=== PATIENT | male | born 1985 | race Two or more races ===

== ENCOUNTER 2016-07-28 12:05 | Emergency (ER) | payer SELFPAY ==
--- NOTE | 2016-07-28 12:30 | ER Document Report ---
ED Medical Screen (RME) - General Stated Complaint: BACK PAIN Time seen by provider: 12:28 Mode of Arrival: Ambulatory Information source: Patient Notes: 31-year-old male presents to ED for right flank pain with a burning sensation when he urinates. Complaint of urgency and frequency. States he thinks he has some bloody discharge. States the splint on for week. Denies any history of kidney stones. I have greeted and performed a rapid initial assessment of this patient. A comprehensive ED assessment and evaluation of the patient, analysis of test results and completion of medical decision making process will be conducted by an additional ED providers. TRAVEL OUTSIDE OF THE [place] IN LAST 30 DAYS: No - Related Data Allergies/Adverse Reactions: No Known Allergies Allergy (Verified 07/28/16 12:27) Past Medical History Pulmonary Medical History: Reports: Hx Asthma Endocrine Medical History: Denies: Hx Diabetes Mellitus Type 2 GI Medical History: Denies: Hx Gastroesophageal Reflux Disease Musculoskeltal Medical History: Reports Hx Musculoskeletal Trauma Traumatic Medical History: Reports: Hx Fractures - right 5th finger Past Surgical History: Reports: Hx Oral Surgery - Immunizations Immunizations up to date: Yes Hx Diphtheria, Pertussis, Tetanus Vaccination: Yes - 2014 Physical Exam - Vital signs Vitals: Temp Pulse Resp BP Pulse Ox 98.2 F 85 20 143/99 H 100 07/28/16 12:24 07/28/16 12:24 07/28/16 12:24 07/28/16 12:24 07/28/16 12:24 Course - Vital Signs Vital signs: Temp Pulse Resp BP Pulse Ox 98.2 F 85 20 143/99 H 100 07/28/16 12:24 07/28/16 12:24 07/28/16 12:24 07/28/16 12:24 07/28/16 12:24
[2016-07-28] MEDS ORDERED: IBUPROFEN 800 MG TABLET PO ONE (12:31)
[2016-07-28] MEDS ORDERED: ONDANSETRON 4 MG TAB.RAPDIS PO ONE (12:31)
[2016-07-28 12:58] LABS: ABSOLUTE EOSINOPHILS # (AUTO) 0.2 10^3/uL (0.0-0.6); ABSOLUTE LYMPHOCYTES (AUTO) 1.9 10^3/uL (0.5-4.7); ABSOLUTE MONOCYTES (AUTO) 0.6 10^3/uL (0.1-1.4); ABSOLUTE NEUT (AUTO) 4.7 10^3/uL (1.7-8.2); BASOPHILS % (AUTO) 0.6 % (0-2); EOSINOPHILS % (AUTO) 3.1 % (0-6); HEMATOCRIT 52.9 % (37.9-51.0); HEMOGLOBIN 17.9 g/dL (13.5-17.0); HGB HCT DIFFERENCE 0.8; LYMPHOCYTES % (AUTO) 25.2 % (13-45); MEAN CORPUSCULAR HGB CONC 33.9 g/dL (32.0-36.0); MEAN CORPUSCULAR VOLUME 89 fl (80-97); MONOCYTES % (AUTO) 8.3 % (3-13); RED BLOOD COUNT 5.96 10^6/uL (4.35-5.55); SEGMENTED NEUTROPHILS % (AUTO) 62.8 % (42-78); WHITE BLOOD COUNT 7.5 10^3/uL (4.0-10.5)
[2016-07-28 13:20] LABS: APPEARANCE,URINE SLIGHTLY-CLOUDY; BILIRUBIN,URINE NEGATIVE (NEGATIVE); GLUCOSE, URINE NEGATIVE (NEGATIVE); KETONES,URINE NEGATIVE (NEGATIVE); LEUKOCYTE ESTERASE,URINE NEGATIVE (NEGATIVE); NITRITE,URINE NEGATIVE (NEGATIVE); PROTEIN,URINE NEGATIVE (NEGATIVE); URINE SPECIFIC GRAVITY 1.024; UROBILINOGEN,URINE NEGATIVE mg/dL (<2.0)
[2016-07-28 13:25] LABS: ALANINE AMINOTRANSFERASE 47 U/L (21-72); ALBUMIN 5.3 g/dL (3.5-5.0); ALKALINE PHOSPHATASE 117 U/L (38-126); ANION GAP 10 (5-19); ASPARTATE AMINO TRANSFERASE 35 U/L (17-59); BLOOD UREA NITROGEN 14 mg/dL (7-20); CALCIUM 10.3 mg/dL (8.4-10.2); CARBON DIOXIDE 29 mmol/L (22-30); CHLORIDE 104 mmol/L (98-107); CREATININE RESULT 0.91 mg/dL (0.52-1.25); GLUCOSE 103 mg/dL (75-110); POTASSIUM 5.1 mmol/L (3.6-5.0); TOTAL PROTEIN 8.7 g/dL (6.3-8.2)
--- NOTE | 2016-07-28 13:35 | ER Document Report ---
[id number] Mode of Arrival: Ambulatory Information source: Patient Notes: 31-year-old male presents with complaints of flank pain with burning on urination. Patient notes he is socially active has no concerns of sexual transmitted disease. Patient has noted blood in his urine. Denies any previous similar episodes TRAVEL OUTSIDE OF THE [place] IN LAST 30 DAYS: No - HPI Onset: Yesterday Onset/Duration: Sudden Quality of pain: Achy Severity: Mild Pain Level: 1 Associated symptoms: None Exacerbated by: Other - Urination Relieved by: Denies Similar symptoms previously: No Recently seen / treated by doctor: No - Related Data Allergies/Adverse Reactions: No Known Allergies Allergy (Verified 07/28/16 12:27) Past Medical History - General Information source: Patient - Social History Smoking Status: Current Some Day Smoker Cigarette use (# per day): Yes Chew tobacco use (# tins/day): Yes Smoking Education Provided: No Family History: Hypertension Pulmonary Medical History: Reports: Hx Asthma Endocrine Medical History: Denies: Hx Diabetes Mellitus Type 2 Renal/ Medical History: Denies: Hx Peritoneal Dialysis GI Medical History: Denies: Hx Gastroesophageal Reflux Disease Musculoskeltal Medical History: Reports Hx Musculoskeletal Trauma Traumatic Medical History: Reports: Hx Fractures - right 5th finger Past Surgical History: Reports: Hx Oral Surgery - Immunizations Immunizations up to date: Yes Hx Diphtheria, Pertussis, Tetanus Vaccination: Yes - 2014 Review of Systems - Review of Systems Notes: REVIEW OF SYSTEMS: CONSTITUTIONAL : Denies fever, chills, or sweats. Denies recent illness. EENT: Denies eye, ear, throat, or mouth pain or symptoms. Denies nasal or sinus congestion or discharge. Denies throat, tongue, or mouth swelling or difficulty swallowing. CARDIOVASCULAR: Denies chest pain. Denies palpitations or racing or irregular heart beat. Denies ankle edema. RESPIRATORY: Denies cough, cold, or chest congestion. Denies shortness of breath, difficulty breathing, or wheezing. GASTROINTESTINAL: Admits to flank pain GENITOURINARY: Admits to burning on urination MUSCULOSKELETAL: Denies back or neck pain or stiffness. Denies joint pain or swelling. SKIN: Denies rash, lesions or sores. HEMATOLOGIC : Denies easy bruising or bleeding. LYMPHATIC: Denies swollen, enlarged glands. NEUROLOGICAL: Denies confusion or altered mental status. Denies passing out or loss of consciousness. Denies dizziness or lightheadedness. Denies headache. Denies weakness or paralysis or loss of use of either side. Denies problems with gait or speech. Denies sensory loss, numbness, or tingling. Denies seizures. PSYCHIATRIC: Denies anxiety or stress. Denies depression, suicidal ideation, or homicidal ideation. ALL OTHER SYSTEMS REVIEWED AND NEGATIVE. Dictation was performed using [employer] voice recognition software PHYSICAL EXAMINATION: GENERAL: Well-appearing, well-nourished and in no acute distress. HEAD: Atraumatic, normocephalic. EYES: Pupils equal round and reactive to light, extraocular movements intact, sclera anicteric, conjunctiva are normal. ENT: Nares patent, oropharynx clear without exudates. Moist mucous membranes. NECK: Normal range of motion, supple without lymphadenopathy LUNGS: Breath sounds clear to auscultation bilaterally and equal. No wheezes rales or rhonchi. HEART: Regular rate and rhythm without murmurs ABDOMEN: Soft, nontender, nondistended abdomen. No guarding, no rebound. No masses appreciated. Bilateral CVA tenderness Musculoskeletal: Normal range of motion, no pitting or edema. No cyanosis. NEUROLOGICAL: Cranial nerves grossly intact. Normal speech, normal gait. Normal sensory, motor exams PSYCH: Normal mood, normal affect. SKIN: Warm, Dry, normal turgor, no rashes or lesions noted. Physical Exam - Vital signs Vitals: Temp Pulse Resp BP Pulse Ox 98.2 F 85 20 143/99 H 100 07/28/16 12:24 07/28/16 12:24 07/28/16 12:24 07/28/16 12:24 07/28/16 12:24 Course - Re-evaluation Re-evalutation: 07/28/16 15:27 Patient's imaging lab work note no significant abnormality, patient does have hematuria which is either covering up his UTI or use a kidney stone that is not being seen I will treat the patient's pain and culture his urine. Gonorrhea Chlamydia was pending and is noted to be negative After performing a Medical Screening Examination, I estimate there is LOW risk for ACUTE CORONARY SYNDROME, RESPIRATORY FAILURE, SEPSIS OR MENINGITIS, thus I consider the discharge disposition reasonable. The patient and I have discussed the diagnosis and risks, and we agree with discharging home with close follow- up. We also discussed returning to the Emergency Department immediately if new or worsening symptoms occur. We have discussed the symptoms which are most concerning (e.g., changing or worsening pain, trouble swallowing or breathing, neck stiffness, fever) that necessitate immediate return. 07/28/16 15:28 - Vital Signs Vital signs: Temp Pulse Resp BP Pulse Ox 98.2 F 81 18 152/83 H 97 07/28/16 14:25 07/28/16 14:25 07/28/16 14:25 07/28/16 14:25 07/28/16 14:25 - Laboratory Result Diagrams: 07/28/16 12:35 07/28/16 12:35 Laboratory results interpreted by me: 07/28/16 07/28/16 07/28/16 12:35 12:35 12:35 RBC 5.96 H Hgb 17.9 H Hct 52.9 H Potassium 5.1 H Calcium 10.3 H Total Protein 8.7 H Albumin 5.3 H Urine Blood LARGE H Urine Ascorbic Acid 20 H - Diagnostic Test Radiology reviewed: Image reviewed, Reports reviewed Discharge - Discharge Clinical Impression: Hematuria, Flank pain Condition: Stable Disposition: HOME, SELF-CARE Instructions: Hematuria ([facility]) Additional Instructions: Follow up with your physician tomorrow for further care or return to the ED IMMEDIATELY if symptoms worsen or new concerns occur Prescriptions: Hydrocodone/Acetaminophen [[place] 5-325 mg Tablet] 1 tab PO Q6 #14 tablet Phenazopyridine HCl [Pyridium 200 mg Tablet] 200 mg PO TID #15 tablet
[2016-07-28 14:33] VITALS: BP 152/83
[2016-07-28 14:45] LABS: CHLAM PCR NOT DETECTED (NOT DETECT)
== END 2016-07-28 14:25 | disposition home or self-care (01) ==
LOC: ER 12:05
DX: R31.9 Hematuria, unspecified (principal); R10.9 Unspecified abdominal pain; R30.0 Dysuria; F17.210 Nicotine dependence, cigarettes, uncomplicated
CPT/HCPCS: 99284; 36415; 87086; 85025; 80053; 81001; 87491; 87591; 76380; S0119

== ENCOUNTER 2016-09-11 12:50 | Emergency (ER) | payer OTHER ==
[2016-09-11] MEDS ORDERED: NAPROXEN 250 MG TABLET PO ONE (13:26)
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
[2016-09-11 15:13] VITALS: BP 126/76
== END 2016-09-11 15:13 | disposition home or self-care (01) ==
LOC: ER 12:50
DX: T14.8 Other injury of unspecified body region (principal); M54.2 Cervicalgia; M54.9 Dorsalgia, unspecified; V48.5XXA Car driver injured in noncollision transport accident in traffic accident, initial encounter; F17.210 Nicotine dependence, cigarettes, uncomplicated; J45.909 Unspecified asthma, uncomplicated
CPT/HCPCS: 72125; 72128; 72131; 99284

== ENCOUNTER 2016-12-09 17:20 | Emergency (ER) | payer OTHER ==
[2016-12-09] MEDS ORDERED: DIPH/PERTUSS(ACELL)/TETANUS VAC/PF 0.5 ML SYR (>=10YO) IM ONE (18:06)
[2016-12-09] MEDS ORDERED: BACITRACIN ZINC OINTMENT 15 GM TP ONE (18:06)
[2016-12-09] MEDS ORDERED: LIDOCAINE 1% INJ (10 MG/ML) 10 ML MDV INJ ONE (18:07)
--- NOTE | 2016-12-09 18:32 | RADIOLOGY REPORT (SQ) ---
EXAM DESCRIPTION: FINGER LEFT COMPLETED DATE/TIME: 12/09/2016 6:20 pm REASON FOR STUDY: left 2nd finger injury COMPARISON: None. NUMBER OF VIEWS: Three views. TECHNIQUE: AP, lateral, and oblique images acquired of the left second finger. LIMITATIONS: None. FINDINGS: MINERALIZATION: Normal. BONES: No acute fracture or dislocation. No worrisome bone lesions. SOFT TISSUES: No soft tissue swelling. No foreign body. OTHER: No other significant finding. IMPRESSION: NO RADIOGRAPHIC EVIDENCE OF ACUTE INJURY. COMMENT: SITE OF TRAUMA/COMPLAINT MARKED/STAMP COMPLETED: Yes TECHNICAL DOCUMENTATION: JOB ID: [id number] [employer]- All Rights Reserved
[2016-12-09] MEDS ORDERED: OXYCODONE-ACETAMINOPHEN 5-325 MG TABLET PO ONE (19:03)
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
[2016-12-09 19:32] VITALS: BP 113/66
== END 2016-12-09 19:28 | disposition home or self-care (01) ==
LOC: ER 17:20
PROC: 2W3KX1Z Immobilization of Left Finger using Splint (ICD-10-PCS; principal; 2016-12-09)
DX: M79.645 Pain in left finger(s) (principal); W22.8XXA Striking against or struck by other objects, initial encounter; F17.200 Nicotine dependence, unspecified, uncomplicated
CPT/HCPCS: 99283; 90471; 73140; 90715; 29130; J3490

== ENCOUNTER 2016-12-15 21:57 | Emergency (ER) | payer OTHER ==
--- NOTE | 2016-12-15 22:57 | ER Document Report ---
ED General - General Chief Complaint: Toothache Stated Complaint: TOOTH PAIN Time Seen by Provider: 12/15/16 22:53 Notes: Patient is a 31-year-old male who presents with right upper molar pain. Describes it as a severe, constant, stabbing pain. Nothing improves the pain. States eating or drinking worsens the pain. He has not seen a dentist regarding today's concerns. Denies any difficulty breathing, swallowing, fever or constitutional symptoms. No facial swelling. TRAVEL OUTSIDE OF THE [place] IN LAST 30 DAYS: No - Related Data Allergies/Adverse Reactions: No Known Allergies Allergy (Verified 07/28/16 12:27) Past Medical History - General Information source: Patient - Social History Smoking Status: Never Smoker Frequency of alcohol use: None Drug Abuse: None Lives with: Spouse/Significant other Family History: Reviewed & Not Pertinent, Hypertension Pulmonary Medical History: Reports: Hx Asthma Endocrine Medical History: Denies: Hx Diabetes Mellitus Type 2 Renal/ Medical History: Denies: Hx Peritoneal Dialysis GI Medical History: Denies: Hx Gastroesophageal Reflux Disease Musculoskeltal Medical History: Reports Hx Musculoskeletal Trauma Traumatic Medical History: Reports: Hx Fractures - right 5th finger Past Surgical History: Reports: Hx Oral Surgery - Immunizations Immunizations up to date: Yes Hx Diphtheria, Pertussis, Tetanus Vaccination: Yes - 2014 Review of Systems - Review of Systems Notes: Constitutional: Negative for fever. HENT: Negative for sore throat. Positive for dental pain Eyes: Negative for visual changes. Cardiovascular: Negative for chest pain. Respiratory: Negative for shortness of breath. Gastrointestinal: Negative for abdominal pain, vomiting or diarrhea. Genitourinary: Negative for dysuria. Musculoskeletal: Negative for back pain. Skin: Negative for rash. Neurological: Negative for headaches, weakness or numbness. 10 point ROS negative except as marked above and in HPI. Physical Exam - Vital signs Vitals: Temp Pulse Resp BP Pulse Ox 98 F 74 16 147/94 H 99 12/15/16 22:07 12/15/16 22:07 12/15/16 22:07 12/15/16 22:07 12/15/16 22:07 Interpretation: Hypertensive Notes: PHYSICAL EXAMINATION: GENERAL: Well-appearing, well-nourished and in no acute distress. HEAD: Atraumatic, normocephalic. EYES: sclera anicteric, conjunctiva are normal. ENT: Moist mucous membranes. Poor dentition throughout. No buccal mucosal swelling or airway edema. NECK: Normal range of motion LUNGS: Normal work of breathing HEART: 2+ radial pulses bilaterally EXTREMITIES: no pitting or edema. No cyanosis. NEUROLOGICAL: No focal neurological deficits. Moves all extremities spontaneously and on command. PSYCH: Normal mood, normal affect. SKIN: Warm, Dry, normal turgor, no rashes or lesions noted. Course - Re-evaluation Re-evalutation: 12/15/16 22:56 Presentation is most consistent with poor dentition with associated dental pain. This is patient's seventh visit to this emergency department in the past 1 year for dental pain issues. Airway is patent. Vitals within normal limits. Patient is able swallow without any difficulty. There is no significant facial swelling. Patient will be started on antibiotics. I've instructed to follow-up with dentistry as earliest ability for definitive management. Return precautions and follow-up recommendations have been discussed at length. - Vital Signs Vital signs: Temp Pulse Resp BP Pulse Ox 98.5 F 64 13 134/85 H 98 12/15/16 23:35 12/15/16 23:35 12/15/16 23:35 12/15/16 23:35 12/15/16 23:35 Discharge - Discharge Clinical Impression: Pain, dental Condition: Good Disposition: HOME, SELF-CARE Additional Instructions: You have been seen for dental pain. It is very important that you follow-up with a dentist for definitive care. Please return if you develop fever greater than 101, swelling in your face, vomiting, difficulty breathing or swallowing, or any other symptoms that are concerning to you. For pain you should take ibuprofen 600 mg every 6 hours as needed. Prescriptions: Penicillin V Potassium [Penicillin Vk 500 mg Tablet] 500 mg PO BID #20 tablet
[2016-12-15 23:37] VITALS: BP 134/85
== END 2016-12-15 23:35 | disposition home or self-care (01) ==
LOC: ER 21:57
DX: K08.89 Other specified disorders of teeth and supporting structures (principal); J45.909 Unspecified asthma, uncomplicated
CPT/HCPCS: 99282

== ENCOUNTER 2016-12-27 14:02 | Emergency (ER) | payer OTHER ==
[2016-12-27] MEDS ORDERED: ONDANSETRON HCL INJ/PF 4 MG/2 ML SDV IV ONE (14:21)
[2016-12-27] MEDS ORDERED: NORMAL SALINE 1000 ML 1,000 ML IV ONE (14:21)
[2016-12-27] MEDS ORDERED: KETOROLAC TROMETHAMINE INJ/PF 30 MG/1 ML SDV IV ONE (14:22)
--- NOTE | 2016-12-27 14:26 | ER Document Report ---
ED Medical Screen (RME) - General Chief Complaint: Flank Pain Stated Complaint: LEFT SIDE PAIN,VOMITING Time Seen by Provider: 12/27/16 14:18 Mode of Arrival: Ambulatory Information source: Patient TRAVEL OUTSIDE OF THE [place] IN LAST 30 DAYS: No - HPI Onset: Other - 3 DAYS Onset/Duration: Gradual Quality of pain: Cramping, Dull Severity: Moderate Associated Symptoms: Nausea, Vomiting. denies: Chills, Fever Exacerbated by: Denies Relieved by: Denies Similar symptoms previously: No Recently seen / treated by doctor: No - Related Data Allergies/Adverse Reactions: No Known Allergies Allergy (Verified 12/27/16 14:09) Past Medical History - General Information source: Patient Pulmonary Medical History: Reports: Hx Asthma Endocrine Medical History: Denies: Hx Diabetes Mellitus Type 2 Renal/ Medical History: Denies: Hx Peritoneal Dialysis GI Medical History: Denies: Hx Gastroesophageal Reflux Disease Musculoskeltal Medical History: Reports Hx Musculoskeletal Trauma Traumatic Medical History: Reports: Hx Fractures - right 5th finger Past Surgical History: Reports: Hx Oral Surgery - Immunizations Immunizations up to date: Yes Hx Diphtheria, Pertussis, Tetanus Vaccination: Yes - 2014 Review of Systems - Review of Systems Constitutional: No symptoms reported EENT: No symptoms reported Cardiovascular: No symptoms reported Respiratory: No symptoms reported Gastrointestinal: See HPI Genitourinary: See HPI, Flank pain Physical Exam - Vital signs Vitals: Temp Pulse Resp BP Pulse Ox 98.1 F 105 H 16 140/83 H 97 12/27/16 14:08 12/27/16 14:08 12/27/16 14:08 12/27/16 14:08 12/27/16 14:08 Interpretation: Hypertensive, Tachycardic. No: Tachypneic, Febrile - General General appearance: Alert, Anxious In distress: Mild - Respiratory Respiratory status: No respiratory distress Course - Vital Signs Vital signs: Temp Pulse Resp BP Pulse Ox 98.1 F 105 H 16 140/83 H 97 12/27/16 14:08 12/27/16 14:08 12/27/16 14:08 12/27/16 14:08 12/27/16 14:08
--- NOTE | 2016-12-27 14:58 | ER Document Report ---
ED GI/ - General Mode of Arrival: Ambulatory Information source: Patient TRAVEL OUTSIDE OF THE [place] IN LAST 30 DAYS: No - HPI Patient complains to provider of: Abdominal pain Onset: Other - "last week or two" Quality of pain: Achy Location: LLQ Associated symptoms: Blood in emesis, Diarrhea, Vomiting Recently seen / treated by doctor: Yes - started on abx within the last week for tooth infection <TARIQ RIBEIRO - Last Filed: 12/27/16 15:33> <RADHA GREEN - Last Filed: 12/27/16 20:51> - General Chief Complaint: Flank Pain Stated Complaint: LEFT SIDE PAIN,VOMITING Time Seen by Provider: 12/27/16 14:18 Notes: Patient is a 31 year old male that presents to the emergency department today with complaints of abdominal pain with associated vomiting for the last "week or two". Patient states his pain begins in his LLQ and it radiates around his left side towards his back. Patient states today while at work, he went to the bathroom and vomited and there was "bright red streaks" of blood in the vomit. Patient states he has noticed that greasy foods make him vomit, but he is able to keep down non-greasy foods despite his lack of appetite. Patient goes on to mention that he has "lost 20 pounds over the last few months". Patient adds that he is currently taking penicillin for a tooth infection, but states that his symptoms started before his course of antibiotics began. Patient complains of associated diarrhea and burning with urination. Patient denies penile discharge and states he has had no new sexual partners and he is not concerned about STIs. (TARIQ RIBEIRO) - Related Data Allergies/Adverse Reactions: No Known Allergies Allergy (Verified 12/27/16 14:09) Past Medical History - General Information source: Patient, [facility] Records - Social History Smoking Status: Current Some Day Smoker Cigarette use (# per day): Yes Chew tobacco use (# tins/day): No Frequency of alcohol use: Occasional Drug Abuse: None Occupation: [employer] Family History: Reviewed & Not Pertinent, Hypertension Pulmonary Medical History: Reports: Hx Asthma Musculoskeltal Medical History: Reports Hx Musculoskeletal Trauma Traumatic Medical History: Reports: Hx Fractures - right 5th finger Past Surgical History: Reports: Hx Oral Surgery - Immunizations Immunizations up to date: Yes Hx Diphtheria, Pertussis, Tetanus Vaccination: Yes - 2014 <TARIQ RIBEIRO - Last Filed: 12/27/16 15:33> Review of Systems - Review of Systems Constitutional: See HPI, Fever - "felt warm" EENT: No symptoms reported Cardiovascular: No symptoms reported Respiratory: No symptoms reported Gastrointestinal: See HPI, Abdominal pain - left sided, radiating around to left side/back, Diarrhea, Nausea, Vomiting, Blood in vomit Genitourinary: See HPI, Burning Male Genitourinary: denies: Penile discharge Musculoskeletal: No symptoms reported Skin: No symptoms reported Hematologic/Lymphatic: No symptoms reported Neurological/Psychological: No symptoms reported -: Yes All other systems reviewed and negative <TARIQ RIBEIRO - Last Filed: 12/27/16 15:33> Physical Exam <TARIQ RIBEIRO - Last Filed: 12/27/16 15:33> <RADHA GREEN - Last Filed: 12/27/16 20:51> - Vital signs Vitals: Temp Pulse Resp BP Pulse Ox 98.1 F 105 H 16 140/83 H 97 12/27/16 14:08 12/27/16 14:08 12/27/16 14:08 12/27/16 14:08 12/27/16 14:08 - Notes Notes: PHYSICAL EXAM GENERAL: Sleeping soundly upon entry into room, wakes up to voice and begins complaining of discomfort after waking up. Once awake, patient is alert, interacts well. No acute distress. HEAD: Normocephalic, atraumatic. EYES: Pupils equal, round, and reactive to light. Extraocular movements intact. ENT: Oral mucosa moist, tongue midline. NECK: Full range of motion. Supple. Trachea midline. LUNGS: Clear to auscultation bilaterally, no wheezes, rales, or rhonchi. No respiratory distress. HEART: Regular rate and rhythm, no tachycardia. No murmurs, gallops, or rubs. ABDOMEN: Soft, LLQ tenderness with palpation, no guarding, rebound, rigidity, or palpable masses. Non-distended. Bowel sounds present in all 4 quadrants. EXTREMITIES: Moves all 4 extremities spontaneously. No edema, radial and dorsalis pedis pulses 2/4 bilaterally. No cyanosis. NEUROLOGICAL: Alert and oriented x3. Normal speech. PSYCH: Normal affect, normal mood. SKIN: Warm, dry, normal turgor. No rashes or lesions noted. (TARIQ RIBEIRO) Course <TARIQ RIBEIRO - Last Filed: 12/27/16 15:33> - Laboratory Result Diagrams: 12/27/16 14:45 12/27/16 14:45 <RADHA GREEN - Last Filed: 12/27/16 20:51> - Re-evaluation Re-evalutation: 12/27/16 16:56 CBC unremarkable, CMP unremarkable, lipase normal, urinalysis unremarkable with no signs of infection, blood or dehydration. No evidence of kidney stone. Patient able to tolerate liquids here without difficulty. Discussed with patient that I do not have an exact cause for his vomiting or diarrhea however I will discharge him home with Zofran, Phenergan and recommendations to use Imodium. No evidence of surgical abdomen at this time. (RADHA GREEN) - Vital Signs Vital signs: Temp Pulse Resp BP Pulse Ox 97.9 F 74 16 126/81 H 100 12/27/16 17:16 12/27/16 17:16 12/27/16 17:16 12/27/16 17:16 12/27/16 17:16 - Laboratory Laboratory results interpreted by me: 12/27/16 16:15 Urine Ascorbic Acid 20 H Discharge <TARIQ RIBEIRO - Last Filed: 12/27/16 15:33> <RADHA GREEN - Last Filed: 12/27/16 20:51> - Discharge Clinical Impression: Nausea vomiting and diarrhea Condition: Stable Disposition: HOME, SELF-CARE Additional Instructions: Today we did not find any evidence of infection, severe blood loss, pancreas problems or kidney infection or kidney stone. At this point I recommend taking Zofran and Phenergan for nausea, using Imodium for her diarrhea, following a gentle diet such as bananas, rice, applesauce and toast. Please follow-up with your primary care physician in the next 3-5 days for recheck should this continue. Please use Advil and Tylenol for your pain. Prescriptions: Loperamide HCl [Imodium A-D] 2 mg PO ASDIR PRN #10 tablet PRN Reason: Ondansetron [Zofran Odt 4 mg Tablet] 1 - 2 tab PO Q4H PRN #15 tab.rapdis PRN Reason: For Nausea/Vomiting Promethazine HCl [Phenergan 25 mg Tablet] 1 - 2 tab PO Q6H PRN #15 tablet PRN Reason: Forms: Return to Work Referrals: [facility] [Primary Care Provider] - Follow up in 3-5 days Scribe Attestation: 12/27/16 20:51 I personally performed the services described in the documentation, reviewed and edited the documentation which was dictated to the scribe in my presence, and it accurately records my words and actions. (RADHA GREEN) Scribe Documentation - Scribe Written by Melany:: Melany Eason, 12/27/2016 1510 acting as scribe for :: Sami <TARIQ RIBEIRO - Last Filed: 12/27/16 15:33>
[2016-12-27] MEDS ORDERED: MAG HYDROX/AL HYDROX/SIMETH SUSP 30 ML UDCUP PO ONE (14:59)
[2016-12-27] MEDS ORDERED: METOCLOPRAMIDE HCL ORAL SOLN 10 MG/10 ML UDCUP PO ONE (14:59)
[2016-12-27] MEDS ORDERED: LIDOCAINE 2% VISCOUS SOLN 20 ML UDCUP PO ONE (14:59)
[2016-12-27 15:56] LABS: ABSOLUTE BASOPHILS # (AUTO) 0.1 10^3/uL (0.0-0.2); ABSOLUTE EOSINOPHILS # (AUTO) 0.3 10^3/uL (0.0-0.6); ABSOLUTE LYMPHOCYTES (AUTO) 1.9 10^3/uL (0.5-4.7); ABSOLUTE MONOCYTES (AUTO) 0.6 10^3/uL (0.1-1.4); ABSOLUTE NEUT (AUTO) 5.1 10^3/uL (1.7-8.2); BASOPHILS % (AUTO) 0.6 % (0-2); HEMOGLOBIN 16.5 g/dL (13.5-17.0); HGB HCT DIFFERENCE 0.5; LYMPHOCYTES % (AUTO) 23.9 % (13-45); MEAN CORPUSCULAR HEMOGLOBIN 30.1 pg (27.0-33.4); MEAN CORPUSCULAR HGB CONC 33.8 g/dL (32.0-36.0); MEAN CORPUSCULAR VOLUME 89 fl (80-97); RED CELL DISTRIBUTION WIDTH 13.4 % (11.5-14.0); SEGMENTED NEUTROPHILS % (AUTO) 63.5 % (42-78)
[2016-12-27 16:16] LABS: ALANINE AMINOTRANSFERASE 43 U/L (21-72); ALBUMIN 4.2 g/dL (3.5-5.0); ALKALINE PHOSPHATASE 104 U/L (38-126); ANION GAP 11 (5-19); ASPARTATE AMINO TRANSFERASE 22 U/L (17-59); BILIRUBIN,DIRECT 0.3 mg/dL (0.0-0.4); BILIRUBIN,TOTAL 0.7 mg/dL (0.2-1.3); BLOOD UREA NITROGEN 11 mg/dL (7-20); CALCIUM 9.2 mg/dL (8.4-10.2); CARBON DIOXIDE 25 mmol/L (22-30); CHLORIDE 104 mmol/L (98-107); GLUCOSE 82 mg/dL (75-110); LIPASE 58.7 U/L (23-300); POTASSIUM 3.9 mmol/L (3.6-5.0); SODIUM 140.1 mmol/L (137-145); TOTAL PROTEIN 6.7 g/dL (6.3-8.2)
[2016-12-27 16:38] LABS: AMORPHOUS SEDIMENT,URINE 1+ /HPF; APPEARANCE,URINE TURBID; BILIRUBIN,URINE NEGATIVE (NEGATIVE); GLUCOSE, URINE NEGATIVE (NEGATIVE); KETONES,URINE NEGATIVE (NEGATIVE); LEUKOCYTE ESTERASE,URINE NEGATIVE (NEGATIVE); NITRITE,URINE NEGATIVE (NEGATIVE); PROTEIN,URINE NEGATIVE (NEGATIVE); UROBILINOGEN,URINE NEGATIVE mg/dL (<2.0)
[2016-12-27] MEDS ORDERED: ACETAMINOPHEN 325 MG TABLET PO ONE (16:55)
[2016-12-27] MEDS ORDERED: ONDANSETRON ODT 4 MG TAB (6 TAB/DSPK) PO PRN (16:58)
[2016-12-27 17:19] VITALS: BP 126/81
== END 2016-12-27 17:19 | disposition home or self-care (01) ==
LOC: ER 14:02
DX: R11.2 Nausea with vomiting, unspecified (principal); R19.7 Diarrhea, unspecified; R10.9 Unspecified abdominal pain; R10.32 Left lower quadrant pain; F17.210 Nicotine dependence, cigarettes, uncomplicated
CPT/HCPCS: 99284; 96374; 96375; 36415; 83690; 85025; 80053; 81001; J3490; J1885; J2405; J7030

== ENCOUNTER 2017-01-25 08:17 | Emergency (ER) | payer OTHER ==
[2017-01-25 08:23] VITALS: BP 149/98
[2017-01-25] MEDS ORDERED: OXYCODONE-ACETAMINOPHEN 5-325 MG TABLET PO ONE (08:44)
[2017-01-25] MEDS ORDERED: CLINDAMYCIN HCL 150 MG CAPSULE PO ONE (08:44)
--- NOTE | 2017-01-25 08:48 | ER Document Report ---
HPI - HPI Patient complains to provider of: Dental pain Onset: Other - Over one month Onset/Duration: Persistent Quality of pain: Achy Pain Level: 5 Context: Patient presents complaining of dental pain to left lower jaw for the past month. Patient denies any fever or facial swelling. Patient states that he was taking penicillin that was left over from prior prescription without any improvement of his pain symptoms. Patient has not followed up with a dental care provider. Patient has been seen in this emergency department for this complaint several times over the past year. Associated Symptoms: Other - Dental pain. denies: Fever, Headache, Vomiting Exacerbated by: Denies Relieved by: Denies Similar symptoms previously: Yes Recently seen / treated by doctor: No - ROS ROS below otherwise negative: Yes Systems Reviewed and Negative: Yes All other systems reviewed and negative - CONSTITUTIONAL Constitutional: DENIES: Fever, Chills - EENT EENT: DENIES: Ear Pain Notes: Dental pain - RESPIRATORY Respiratory: DENIES: Coughing - GASTROINTESTINAL Gastrointestinal: DENIES: Nausea, Patient vomiting - REPRODUCTIVE Reproductive: DENIES: : - MUSCULOSKELETAL Musculoskeletal: DENIES: Back Pain, Neck Pain - DERM Skin Color: Normal Skin Problems: None Past Medical History - General Information source: Patient - Social History Smoking Status: Current Every Day Smoker Frequency of alcohol use: Occasional Drug Abuse: None Lives with: Spouse/Significant other Family History: Reviewed & Not Pertinent, Hypertension Pulmonary Medical History: Reports: Hx Asthma Endocrine Medical History: Denies: Hx Diabetes Mellitus Type 2 Renal/ Medical History: Denies: Hx Peritoneal Dialysis GI Medical History: Denies: Hx Gastroesophageal Reflux Disease Musculoskeltal Medical History: Reports Hx Musculoskeletal Trauma Traumatic Medical History: Reports: Hx Fractures - right 5th finger Past Surgical History: Reports: Hx Oral Surgery - Immunizations Immunizations up to date: Yes Hx Diphtheria, Pertussis, Tetanus Vaccination: Yes - 2014 [facility] Provider Document - CONSTITUTIONAL Agree With Documented VS: Yes Exam Limitations: No Limitations General Appearance: WD/WN, No Apparent Distress - INFECTION CONTROL TRAVEL OUTSIDE OF THE [place] IN LAST 30 DAYS: No - HEENT HEENT: Atraumatic, Normocephalic. negative: Pharyngeal Exudate, Pharyngeal Tenderness, Pharyngeal Erythema, Tympanic Membrane Red, Tympanic Membrane Bulging Mouth Diagram: 1 - dental decay, tenderness, no abscess, no trismus - NECK Neck: Normal Inspection, Supple. negative: Lymphadenopathy-Left, Lymphadenopathy-Right - RESPIRATORY Respiratory: Breath Sounds Normal, No Respiratory Distress O2 Sat by Pulse Oximetry: 100 - CARDIOVASCULAR Cardiovascular: Regular Rate, Regular Rhythm, No Murmur - MUSCULOSKELETAL/EXTREMETIES Musculoskeletal/Extremeties: MAEW - NEURO Level of Consciousness: Awake, Alert, Appropriate Motor/Sensory: No Motor Deficit - DERM Integumentary: Warm, Dry, No Rash Course - Re-evaluation Re-evalutation: 01/25/17 08:45 The patient has been informed that they may have pre-hypertension or hypertension based on a blood pressure reading in the emergency department. I recommend that patient call the primary care provider listed on their discharge instructions or a physician of their choice by this week to arrange follow-up for further evaluation of possible pre-hypertension or hypertension. 01/25/17 08:45 Patient advised of chronic pain policy of the emergency department and given a printed handout regarding this policy, patient advised that he will need to follow-up with a dental care provider for definitive treatment of his dental caries. - Vital Signs Vital signs: Temp Pulse Resp BP Pulse Ox 97.8 F 74 18 149/98 H 100 01/25/17 08:21 01/25/17 08:21 01/25/17 08:21 01/25/17 08:21 01/25/17 08:21 Discharge - Discharge Clinical Impression: Pain due to dental caries, Elevated blood pressure reading Condition: Stable Disposition: HOME, SELF-CARE Instructions: Toothache ([facility]), Clindamycin ([facility]), Dentist Additional Instructions: Return immediately for any new or worsening symptoms Followup with your dental care provider, call tomorrow to make a followup appointment Prescriptions: Clindamycin HCl [Cleocin 300 mg Capsule] 300 mg PO TID #21 capsule Naproxen [Naprosyn 250 Nmg Tablet] 1 tab PO BID #14 tablet Forms: Return to Work Referrals: [facility] [Provider Group] - Follow up as needed
== END 2017-01-25 09:04 | disposition home or self-care (01) ==
LOC: ER 08:17
DX: K08.89 Other specified disorders of teeth and supporting structures (principal)
CPT/HCPCS: 99282

== ENCOUNTER 2017-04-25 17:09 | Emergency (ER) | payer OTHER ==
[2017-04-25 17:17] VITALS: BP 145/85
--- NOTE | 2017-04-25 17:30 | ER Document Report ---
HPI - HPI Pain Level: 4 Notes: Patient is a 32-year-old male no significant past medical history who presents the ED complaining of bilateral dental pain to #31 and 18. Patient states that the pain has been ongoing over the last few days. Patient states that he does have an appoint with a dentist for 3 weeks from now. He has not noticed any obvious abscess or discharge. Patient states that he is still eating and drinking without any problems, but does have discomfort when he bites down. No other concerns once at this time. Denies any drug allergies. Denies any smoking or IV drug use. Denies any headache, fever, head injury, neck pain, URI , sore throat, chest pain, palpitations, syncope, cough, shortness of breath, wheeze, dyspnea, abdominal pain, nausea/vomiting/diarrhea, or rash. - ROS Notes: REVIEW OF SYSTEMS: CONSTITUTIONAL : Denies fever, chills, or sweats. Denies recent illness. EENT: see hpi CARDIOVASCULAR: Denies chest pain. Denies palpitations or racing or irregular heart beat. RESPIRATORY: Denies cough, cold, or chest congestion. Denies shortness of breath, difficulty breathing, or wheezing. GASTROINTESTINAL: Denies abdominal pain or distention. Denies nausea, vomiting , or diarrhea. GENITOURINARY: Denies difficulty urinating, painful urination, burning, frequency, blood in urine, or discharge. MUSCULOSKELETAL: Denies back or neck pain or stiffness. Denies joint pain or swelling. SKIN: Denies rash, lesions or sores. NEUROLOGICAL: Denies confusion or altered mental status. Denies passing out or loss of consciousness. Denies dizziness or lightheadedness. Denies headache. Denies weakness or paralysis or loss of use of either side. Denies problems with gait or speech. Denies sensory loss, numbness, or tingling. ALL OTHER SYSTEMS REVIEWED AND NEGATIVE. Dictation was performed using [employer] voice recognition software - REPRODUCTIVE Reproductive: DENIES: : - DERM Skin Color: Normal Past Medical History - Social History Smoking Status: Never Smoker Family History: Reviewed & Not Pertinent, Hypertension Patient has suicidal ideation: No Patient has homicidal ideation: No Pulmonary Medical History: Reports: Hx Asthma Endocrine Medical History: Denies: Hx Diabetes Mellitus Type 2 Renal/ Medical History: Denies: Hx Peritoneal Dialysis GI Medical History: Denies: Hx Gastroesophageal Reflux Disease Musculoskeltal Medical History: Reports Hx Musculoskeletal Trauma Traumatic Medical History: Reports: Hx Fractures - right 5th finger Past Surgical History: Reports: Hx Oral Surgery - Immunizations Immunizations up to date: Yes Hx Diphtheria, Pertussis, Tetanus Vaccination: Yes - 2014 [employer] Provider Document - CONSTITUTIONAL Agree With Documented VS: Yes Notes: PHYSICAL EXAMINATION: GENERAL: Well-appearing, well-nourished and in no acute distress. HEAD: Atraumatic, normocephalic. EYES: Pupils equal round and reactive to light, extraocular movements intact, sclera anicteric, conjunctiva are normal. ENT: EAC clear b/l. TM's intact b/l without erythema, fluid, or perforation. Nares patent and without discharge. oropharynx clear without exudates. No tonsilar hypertrophy or erythema. Moist mucous membranes. No sinus tenderness. Uvula midline. No palatine shift. No tongue protrusion. No respiratory compromise. No hoarseness or excessive drooling. Mouth: Poor dentition. + mild decay and mild gingivitis. No obvious abscess or discharge noted. No facial swelling. + tenderness to tooth #18, 31. NECK: Normal range of motion, supple without lymphadenopathy. No rigidity/ meningismus. LUNGS: Breath sounds clear to auscultation bilaterally and equal. No wheezes rales or rhonchi. HEART: Regular rate and rhythm without murmurs, rubs, gallops. NEUROLOGICAL: Cranial nerves grossly intact. Normal speech, normal gait. Normal sensory, motor exams PSYCH: Normal mood, normal affect. SKIN: Warm, Dry, normal turgor, no rashes or lesions noted. - INFECTION CONTROL TRAVEL OUTSIDE OF THE [place] IN LAST 30 DAYS: No - RESPIRATORY O2 Sat by Pulse Oximetry: 98 Course - Re-evaluation Re-evalutation: 04/25/17 17:28 Patient is an afebrile, well-hydrated, 32-year-old male who presents the ED with dental pain to #31 and #18. Vitals are stable. PE is otherwise unremarkable. Suspect nerve root etiology versus infection. No incision and drainage is warranted today. I will send him home with a prescription for penicillin to take as directed along with viscous lidocaine. Low suspicion for any meningitis, sepsis, peritonsillar/pharyngeal abscess, respiratory compromise , Paolo's, temporal arteritis, or other emergent systemic condition at this time. Patient is aware this condition can change from initial presentation and he needs to monitor symptoms closely. Conservative measures otherwise for symptoms. Keep appointment with dentist as scheduled. Recheck with your PCM this week as well. Return to the ED with any worsening/concerning symptoms otherwise as reviewed in discharge. Patient is in agreement. - Vital Signs Vital signs: Temp Pulse Resp BP Pulse Ox 98.6 F 88 12 145/85 H 98 04/25/17 17:14 04/25/17 17:14 04/25/17 17:14 04/25/17 17:14 04/25/17 17:14 Discharge - Discharge Clinical Impression: Toothache Condition: Stable Disposition: HOME, SELF-CARE Instructions: Penicillin V K ([facility]), Toothache ([facility]), [facility] Additional Instructions: [place] and floss twice daily Maintain fluid intake Take antibiotics as directed Mouthwash, salt water gargles, peroxide rinse as needed Tylenol/ibuprofen as needed Recheck with PCM this week Call today/tomorrow and schedule an appointment with your dentist for further evaluation--Keep dental appointment as scheduled. Return to the ED with any worsening symptoms and/or development of fever, headache, facial swelling, swelling of lips/tongue/throat, trouble swallowing, drooling, hoarseness, neck pain/stiffness, chest pain, palpitations, syncope, shortness of breath, trouble breathing, abdominal pain, n/v/d, numbness/tingling , or other worsening symptoms that are concerning to you. Prescriptions: Penicillin V Potassium [Penicillin Vk 500 mg Tablet] 500 mg PO BID #20 tablet Forms: Elevated Blood Pressure Referrals: [facility] [Provider Group] - Follow up as needed
[2017-04-25] MEDS ORDERED: LIDOCAINE 2% VISCOUS SOLN 20 ML UDCUP PO ONE (17:31)
== END 2017-04-25 17:40 | disposition home or self-care (01) ==
LOC: ER 17:09
DX: K08.9 Disorder of teeth and supporting structures, unspecified (principal)
CPT/HCPCS: 99283; J3490

== ENCOUNTER 2017-05-12 21:06 | Emergency (ER) | payer OTHER ==
[2017-05-12] MEDS ORDERED: LIDOCAINE 1% INJ-PF (10 MG/ML) 30 ML SDV INJ ONE (21:45)
[2017-05-12] MEDS ORDERED: MORPHINE SULFATE IR 15 MG TABLET PO ONE (22:12)
--- NOTE | 2017-05-12 22:41 | ER Document Report ---
HPI - HPI Pain Level: 2 Notes: Patient is a 32-year-old male who presents the ED complaining of a laceration to his anterior distal left thumb prior to arrival. Patient states he was trying to open up a can of vegetables when he sliced his thumb. Patient states that he does have pain to the area, but denies any numbness or tingling. Patient states he still able to move his thumb without any difficulties. Patient states that his last tetanus was within the last 5 years. Patient denies any other significant medical history to that thumb. No other concerns or complaints. Denies any drug allergies. Denies any IV drug use. Denies any headache, fever, URI, sore throat, chest pain, palpitations, syncope, cough, shortness of breath, wheeze, dyspnea, abdominal pain, nausea/vomiting/diarrhea, dysuria, hematuria, numbness/tingling, muscle paralysis/weakness, or rash. - ROS Notes: REVIEW OF SYSTEMS: CONSTITUTIONAL : Denies fever, chills, or sweats. Denies recent illness. EENT: Denies eye, ear, throat, or mouth pain or symptoms. Denies nasal or sinus congestion or discharge. Denies throat, tongue, or mouth swelling or difficulty swallowing. CARDIOVASCULAR: Denies chest pain. Denies palpitations or racing or irregular heart beat. RESPIRATORY: Denies cough, cold, or chest congestion. Denies shortness of breath, difficulty breathing, or wheezing. GASTROINTESTINAL: Denies abdominal pain or distention. Denies nausea, vomiting , or diarrhea. GENITOURINARY: Denies difficulty urinating, painful urination, burning, frequency, blood in urine, or discharge. MUSCULOSKELETAL: see hpi. Denies back or neck pain or stiffness. Denies joint pain or swelling. SKIN: see hpi NEUROLOGICAL: Denies confusion or altered mental status. Denies passing out or loss of consciousness. Denies dizziness or lightheadedness. Denies headache. Denies weakness or paralysis or loss of use of either side. Denies problems with gait or speech. Denies sensory loss, numbness, or tingling. ALL OTHER SYSTEMS REVIEWED AND NEGATIVE. Dictation was performed using [employer] voice recognition software - REPRODUCTIVE Reproductive: DENIES: : Past Medical History - Social History Smoking Status: Unknown if Ever Smoked Family History: Reviewed & Not Pertinent, Hypertension Patient has suicidal ideation: No Patient has homicidal ideation: No Pulmonary Medical History: Reports: Hx Asthma Endocrine Medical History: Denies: Hx Diabetes Mellitus Type 2 Renal/ Medical History: Denies: Hx Peritoneal Dialysis GI Medical History: Denies: Hx Gastroesophageal Reflux Disease Musculoskeltal Medical History: Reports Hx Musculoskeletal Trauma Traumatic Medical History: Reports: Hx Fractures - right 5th finger Past Surgical History: Reports: Hx Oral Surgery - Immunizations Immunizations up to date: Yes Hx Diphtheria, Pertussis, Tetanus Vaccination: Yes - 2014 [facility] Provider Document - CONSTITUTIONAL Agree With Documented VS: Yes Notes: PHYSICAL EXAMINATION: GENERAL: Well-appearing, well-nourished and in no acute distress. LUNGS: Breath sounds clear to auscultation bilaterally and equal. No wheezes rales or rhonchi. HEART: Regular rate and rhythm without murmurs, rubs, gallops. Musculoskeletal: Left thumb: FROM to passive/active. Strength 5+/5. N/V intact distal. No obvious tendon/ligament laceration. Extremities: No cyanosis, clubbing, or edema b/l. Peripheral pulses 2+. Capillary refill less than 3 seconds. NEUROLOGICAL: Normal speech, normal gait. Normal sensory, motor exams PSYCH: Normal mood, normal affect. SKIN: 2 cm clean, superficial laceration to the anterior left distal thumb. - INFECTION CONTROL TRAVEL OUTSIDE OF THE [place] IN LAST 30 DAYS: No - RESPIRATORY O2 Sat by Pulse Oximetry: 98 Course - Re-evaluation Re-evalutation: 05/13/17 01:13 Patient is an afebrile, well-hydrated, 32-year-old male who presents the ED with a laceration to the left anterior distal thumb. Vitals are stable. PE is otherwise unremarkable for any neurovascular, rise, obvious tendon/ligament rupture, obvious fracture or dislocation. No imaging warranted at this time. Tetanus was reported to be up-to-date. Wound was thoroughly cleansed and irrigated. No foreign body was appreciated. Wound edges were approximated appropriately utilizing 5 simple interrupted sutures. Wound dressing was placed and wound instructions were reviewed with the patient. I will send him home with a short prescription of Keflex. Conservative measures for symptoms. Recheck with your PCM in 2-3 days. Return to the ED with any worsening/ concerning symptoms otherwise as reviewed in discharge. Sutures will need removed in about 10 days. Patient is in agreement. - Vital Signs Vital signs: Temp Pulse Resp BP Pulse Ox 98.5 F 75 18 138/99 H 98 05/12/17 21:06 05/12/17 21:06 05/12/17 21:06 05/12/17 21:06 05/12/17 21:06 Procedures - Laceration/Wound Repair Left Thumb Time completed: 23:00 Wound length (cm): 2 Wound's Depth, Shape: Superficial, Irregular. No: Into muscle Laceration pre-procedure: Sterile PPE donned, Sterile drapes applied, Other - chlorhexadine Anesthetic type: 1% Lidocaine Volume Anesthetic (mLs): 8 Wound explored: Clean, No foreign body removed Irrigated w/ Saline (mLs): 60 Wound Debrided: Minimal Wound Repaired With: Sutures Suture Size/Type: 4:0, Nylon Number of Sutures: 5 Layer Closure?: No Post-procedure wound care: Sterile dressing applied Post-procedure NV exam normal: Yes Complications: No Discharge - Discharge Clinical Impression: Laceration of thumb Qualifiers: Encounter type: initial encounter Damage to nail status: without damage Foreign body presence: without foreign body Laterality: left Qualified Code(s): S61.012A - Laceration without foreign body of left thumb without damage to nail , initial encounter Condition: Stable Disposition: HOME, SELF-CARE Instructions: Antibiotic Ointment Protection ([facility]), Laceration Care ([facility]), Prophylactic Antibiotic ([facility]), Soap Cleansing ([facility]) Additional Instructions: Do not shower or bathe for 24 hours. After 24 hours you may shower but no submersion of the wound under water. Keep the original dressing on the wound for 24 hours unless the drainage soaks through. Change the dressing daily thereafter and keep the knots of the suture material clean from any dried discharge. You may leave the wound open to the air once there is no more discharge. Return to the ED and/or your PCM in 2-3 days for a recheck. Monitor for any signs of worsening pain or redness, purulent drainage, streaks, and/or fever. Return to the ED if noticing any of the above symptoms or as needed. Take medications as directed. Your sutures will need to be removed in 10 days. Prescriptions: Cephalexin Monohydrate [Keflex 500 mg Capsule] 500 mg PO BID #10 capsule Morphine Sulfate [Morphine Ir 15 Mg Tablet] 15 mg PO BID #4 tablet Forms: Elevated Blood Pressure Referrals: [facility] ([facility] [Provider Group] - Follow up as needed
[2017-05-12] MEDS ORDERED: ACETAMINOPHEN 325 MG TABLET PO ONE (23:45)
[2017-05-12] MEDS ORDERED: IBUPROFEN 600 MG TABLET PO ONE (23:45)
[2017-05-13 00:03] VITALS: BP 154/96
== END 2017-05-13 00:01 | disposition home or self-care (01) ==
LOC: ER 21:06
DX: S61.012A Laceration without foreign body of left thumb without damage to nail, initial encounter (principal); W45.8XXA Other foreign body or object entering through skin, initial encounter; Y93.89 Activity, other specified; J45.909 Unspecified asthma, uncomplicated
CPT/HCPCS: 99283; 12001; J3490

== ENCOUNTER 2017-08-15 14:12 | Emergency (ER) | payer SELFPAY ==
[2017-08-15 14:22] VITALS: BP 145/81
[2017-08-15] MEDS ORDERED: OXYCODONE-ACETAMINOPHEN 5-325 MG TABLET PO ONE (15:10)
[2017-08-15] MEDS ORDERED: PENICILLIN V POTASSIUM 500 MG TABLET PO ONE (15:10)
[2017-08-15] MEDS ORDERED: IBUPROFEN 800 MG TABLET PO ONE (15:10)
--- NOTE | 2017-08-15 15:11 | ER Document Report ---
HPI - HPI Onset: Last week Onset/Duration: Worse Quality of pain: Achy Pain Level: 5 Context: Patient states that a crown fell off of his tooth a few weeks ago and that the pain has gradually worsened. Patient denies any fever or facial swelling. Associated Symptoms: Other - Dental pain. denies: Fever Exacerbated by: Denies Relieved by: Denies Similar symptoms previously: Yes Recently seen / treated by doctor: No - ROS ROS below otherwise negative: Yes Systems Reviewed and Negative: Yes All other systems reviewed and negative - CONSTITUTIONAL Constitutional: DENIES: Fever - EENT Notes: Dental pain - RESPIRATORY Respiratory: DENIES: Coughing - GASTROINTESTINAL Gastrointestinal: DENIES: Nausea, Patient vomiting - REPRODUCTIVE Reproductive: DENIES: : - DERM Skin Color: Normal Skin Problems: None Past Medical History - General Information source: Patient - Social History Smoking Status: Current Every Day Smoker Smoking Education Provided: Yes Frequency of alcohol use: Occasional Drug Abuse: None Occupation: [employer] Lives with: Family Family History: Reviewed & Not Pertinent, Hypertension - Medical History Medical History: Negative Pulmonary Medical History: Reports: Hx Asthma Endocrine Medical History: Denies: Hx Diabetes Mellitus Type 2 Renal/ Medical History: Denies: Hx Peritoneal Dialysis GI Medical History: Denies: Hx Gastroesophageal Reflux Disease Musculoskeltal Medical History: Reports Hx Musculoskeletal Trauma Traumatic Medical History: Reports: Hx Fractures - right 5th finger Past Surgical History: Reports: Hx Oral Surgery - Immunizations Immunizations up to date: Yes Hx Diphtheria, Pertussis, Tetanus Vaccination: Yes - 2014 [facility] Provider Document - CONSTITUTIONAL Agree With Documented VS: Yes Exam Limitations: No Limitations General Appearance: WD/WN, No Apparent Distress - INFECTION CONTROL TRAVEL OUTSIDE OF THE [place] IN LAST 30 DAYS: No - HEENT HEENT: Atraumatic, Normocephalic. negative: Pharyngeal Exudate, Pharyngeal Tenderness, Pharyngeal Erythema, Tympanic Membrane Red, Tympanic Membrane Bulging Mouth Diagram: 1 - Dental decay, tenderness, no gingival abscess, no sublingual or submental swelling, no trismus - NECK Neck: Normal Inspection, Supple. negative: Lymphadenopathy-Left, Lymphadenopathy-Right - RESPIRATORY Respiratory: Breath Sounds Normal, No Respiratory Distress O2 Sat by Pulse Oximetry: 99 - CARDIOVASCULAR Cardiovascular: Regular Rate, Regular Rhythm, No Murmur - BACK Back: Normal Inspection - MUSCULOSKELETAL/EXTREMETIES Musculoskeletal/Extremeties: MAEW - NEURO Level of Consciousness: Awake, Alert, Appropriate Motor/Sensory: No Motor Deficit - DERM Integumentary: Warm, Dry, No Rash Course - Re-evaluation Re-evalutation: 08/15/17 15:09 The patient has been informed that they may have pre-hypertension or hypertension based on a blood pressure reading in the emergency department. I recommend that patient call the primary care provider listed on their discharge instructions or a physician of their choice by this week to arrange follow-up for further evaluation of possible pre-hypertension or hypertension. Controlled substance database reviewed - Vital Signs Vital signs: Temp Pulse Resp BP Pulse Ox 98.4 F 66 17 145/81 H 99 08/15/17 14:20 08/15/17 14:20 08/15/17 14:20 08/15/17 14:20 08/15/17 14:20 Discharge - Discharge Clinical Impression: Elevated blood pressure reading, Toothache Condition: Stable Disposition: HOME, SELF-CARE Instructions: Penicillin V K ([facility]), Toothache ([facility]) Additional Instructions: Return immediately for any new or worsening symptoms Followup with your primary care provider, call tomorrow to make a followup appointment Follow-up with a dental care provider Prescriptions: Naproxen [Naprosyn 250 Nmg Tablet] 1 tab PO BID #14 tablet Penicillin V Potassium [Penicillin Vk 500 mg Tablet] 500 mg PO BID #20 tablet Forms: Elevated Blood Pressure, Smoking Cessation Education Referrals: [facility] ([facility]) [Provider Group] - Follow up as needed
== END 2017-08-15 15:23 | disposition home or self-care (01) ==
LOC: ER 14:12
DX: R03.0 Elevated blood-pressure reading, without diagnosis of hypertension (principal); K08.9 Disorder of teeth and supporting structures, unspecified; F17.200 Nicotine dependence, unspecified, uncomplicated
CPT/HCPCS: 99282

== ENCOUNTER 2017-11-28 21:52 | Emergency (ER) | payer SELFPAY ==
[2017-11-28] MEDS ORDERED: ACETAMINOPHEN 325 MG TABLET PO ONE (22:56)
[2017-11-28] MEDS ORDERED: IBUPROFEN 600 MG TABLET PO ONE (22:56)
--- NOTE | 2017-11-28 23:39 | RADIOLOGY REPORT (SQ) ---
EXAM DESCRIPTION: CT HEAD WITHOUT IV CONTRAST COMPLETED DATE/TME: 11/28/2017 22:36 EXAM DESCRIPTION: CT of the head without contrast COMPARISON: 05/28/2015 TECHNIQUE: Axial CT of the head obtained from the skull apex to the skull base without contrast. FINDINGS: No acute intracranial hemorrhage identified. No mass, mass effect, shift of the midline, abnormal extra-axial fluid collection or CT evidence of acute ischemic change identified. The ventricular system is unremarkable. No acute abnormalities of the supratentorial white matter, basal ganglia, cerebellum, or brainstem. Fracture of the right orbital floor with likely posttraumatic fluid in the right maxillary sinus. Visualized orbits and globes are unremarkable. DLP: 1043.77 mGy-cm IMPRESSION: 1. No acute intracranial abnormality identified. 2. Right orbital floor minimally displaced fracture. Please see dedicated facial bone CT for further details. This exam was performed according to our departmental dose-optimization program, which includes automated exposure control, adjustment of the mA and/or kV according to patient size and/or use of iterative reconstruction technique.
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
[2017-11-29] MEDS ORDERED: MORPHINE SULFATE IR 15 MG TABLET PO ONE (00:09)
[2017-11-29 00:45] VITALS: BP 131/77
== END 2017-11-29 00:52 | disposition home or self-care (01) ==
LOC: ER 21:52
DX: S02.31XA Fracture of orbital floor, right side, initial encounter for closed fracture (principal); S02.401A Maxillary fracture, unspecified side, initial encounter for closed fracture; S09.90XA Unspecified injury of head, initial encounter; Y04.2XXA Assault by strike against or bumped into by another person, initial encounter; Y92.410 Unspecified street and highway as the place of occurrence of the external cause
CPT/HCPCS: 70450; 70486; 99284

== ENCOUNTER 2018-03-05 14:48 | Emergency (ER) | payer SELFPAY ==
[2018-03-05 14:57] VITALS: BP 142/90
[2018-03-05] MEDS ORDERED: PENICILLIN V POTASSIUM 500 MG TABLET PO ONE (15:14)
[2018-03-05] MEDS ORDERED: HYDROCODONE/ACETAMINOPHEN 5-325 MG TABLET PO ONE (15:14)
[2018-03-05] MEDS ORDERED: IBUPROFEN 600 MG TABLET PO ONE (15:14)
--- NOTE | 2018-03-05 15:19 | ER Document Report ---
HPI - HPI Pain Level: 2 Notes: Patient is a 32-year-old male who presents with chief complaint of left lower dental pain at tooth #19. Patient reports this is been hurting for approximately 1 month. Patient denies any fevers. - REPRODUCTIVE Reproductive: DENIES: : Past Medical History - General Information source: Patient - Social History Smoking Status: Current Some Day Smoker Drug Abuse: None Lives with: Alone Family History: Reviewed & Not Pertinent, Hypertension Pulmonary Medical History: Reports: Hx Asthma Endocrine Medical History: Denies: Hx Diabetes Mellitus Type 2 Renal/ Medical History: Denies: Hx Peritoneal Dialysis GI Medical History: Denies: Hx Gastroesophageal Reflux Disease Musculoskeletal Medical History: Reports Hx Musculoskeletal Trauma Traumatic Medical History: Reports: Hx Fractures - right 5th finger Past Surgical History: Reports: Hx Oral Surgery - Immunizations Immunizations up to date: Yes Hx Diphtheria, Pertussis, Tetanus Vaccination: Yes - 2014 Vertical Provider Document - CONSTITUTIONAL Notes: PHYSICAL EXAMINATION: GENERAL: Well-appearing, well-nourished and in no acute distress. HEAD: Atraumatic, normocephalic. EYES: Pupils equal round extraocular movements intact, conjunctiva are normal. ENT: Nares patent, dental decay noted to right lower. No drainable abscess identified. NECK: Normal range of motion LUNGS: No respiratory distress Musculoskeletal: Normal range of motion NEUROLOGICAL: Normal speech, normal gait. PSYCH: Normal mood, normal affect. SKIN: Warm, Dry, normal turgor, no rashes or lesions noted. - INFECTION CONTROL TRAVEL OUTSIDE OF THE [place] IN LAST 30 DAYS: No Course - Re-evaluation Re-evalutation: 03/05/18 15:16 Patient declined offer of dental block, patient will be given one time dose of pain medication and placed on penicillin. Patient will be given information for the [facility]. - Vital Signs Vital signs: Temp Pulse Resp BP Pulse Ox 97.8 F 78 18 142/90 H 98 03/05/18 14:56 03/05/18 14:56 03/05/18 14:56 03/05/18 14:56 03/05/18 14:56 Discharge - Discharge Clinical Impression: Pain, dental Condition: Stable Disposition: HOME, SELF-CARE Additional Instructions: TOOTHACHE: Your pain is due to dental decay. The tooth must be repaired in order for you to feel better. You will, therefore, be referred to a dentist. We do not have dentists on the staff at [facility]. Severe swelling or drainage around a tooth usually means a dental abscess. This also requires evaluation and treatment by the dentist, but antibiotics may be prescribed while awaiting dental treatment. You should be rechecked immediately if you develop major swelling of the face, increasing pain, a lump in the jaw or gums, headache, difficulty swallowing, or fever. PENICILLIN V K: You have been given a prescription for Penicillin VK. Your physician has determined that this is the best antibiotic for your condition. Pen VK can be taken with meals, however more of the antibiotic gets into the bloodstream if it's taken on an empty stomach. Penicillin usually has no side effects. However, allergy to penicillins is common. If you have had an allergic reaction to any drug of the penicillin family, you should never take any other penicillin. Notify your doctor at once if you develop hives, itching, swelling, faintness, or shortness of breath. FOLLOW-UP CARE: You have been referred for follow-up care to the dentists listed below. Call the dentists office for an appointment as you were instructed or within the next two days. If you experience worsening or a significant change in your symptoms, notify the physician immediately or return to the Emergency Department at any time for re-evaluation. [facility] [address] Please take ibuprofen 600 mg every 6 hours. Please take the penicillin as prescribed. Use the Viscous Lidocaine up to 4 times a day, apply it directly onto the affected area for pain. Follow-up with the [facility] or a dentist of your choice. Prescriptions: Lidocaine HCl [Lidocaine HCl Viscous] 20 ml MM QID #40 ml Penicillin V Potassium [Penicillin Vk 500 mg Tablet] 500 mg PO TID #30 tablet
== END 2018-03-05 15:30 | disposition home or self-care (01) ==
LOC: ER 14:48
DX: K02.9 Dental caries, unspecified (principal); K08.89 Other specified disorders of teeth and supporting structures; F17.200 Nicotine dependence, unspecified, uncomplicated; E11.9 Type 2 diabetes mellitus without complications
CPT/HCPCS: 99282

== ENCOUNTER 2018-03-08 08:03 | Emergency (ER) | payer SELFPAY ==
[2018-03-08 08:14] VITALS: BP 143/84
[2018-03-08] MEDS ORDERED: NALOXONE HCL INJ 2 MG/2 ML DISP.SYRIN ONE (08:15)
[2018-03-08] MEDS ORDERED: NALOXONE HCL INJ 2 MG/2 ML DISP.SYRIN IV ONE (08:20)
--- NOTE | 2018-03-08 08:27 | ER Document Report ---
ED General - General Chief Complaint: Possible Overdose Stated Complaint: POSSIBLE OVERDOSE Time Seen by Provider: 03/08/18 08:13 TRAVEL OUTSIDE OF THE [place] IN LAST 30 DAYS: No - HPI Notes: Patient is a 32-year-old male that presents to the emergency department for chief complaint of drug overdose. Patient presents to the emergency room for drug overdose. He was found by a friend laying face down on the floor with shallow respirations about 1 hour ago. She states that he was behaving normally roughly 45 minutes prior to him being found unresponsive on the floor. He was never completely unconscious and was responding and speaking with slurred speech. Patient endorses snorting a drug that was given to him by someone he did not really know. He is unsure what he snorted. He does believe it was cocaine. He denies any history of heroin or opiate abuse in the past. He denies any injection of medications or drugs or taking any pills. He does also endorse recent alcohol use stating he had 3-4 beers yesterday. He denies any chronic medical issues or symptoms at this time Past Medical History: Negative Past Surgical History: Negative Social History: Occasional cocaine and marijuana, occasional alcohol, denies tobacco Family History: Reviewed and noncontributory for presenting illness Allergies: Reviewed, see documented allergy list. REVIEW OF SYSTEMS: CONSTITUTIONAL : No fever No chills No diaphoresis No recent illness EENT: No vision changes No congestion No sore throat CARDIOVASCULAR: No chest pain No palpitations RESPIRATORY: No shortness of breath No cough No difficulty breathing GASTROINTESTINAL: No abdominal pain No nausea No vomiting No diarrhea GENITOURINARY: No dysuria No hematuria No difficulty urinating MUSCULOSKELETAL: No back pain No leg pain No arm pain SKIN: No rashes No lesions LYMPHATIC: No swollen, enlarged glands. NEUROLOGICAL: No lightheadedness No headache No weakness No paresthesias PSYCHIATRIC: No anxiety No depression PHYSICAL EXAMINATION: Vital signs reviewed, nursing noted reviewed. GENERAL: Appears somnolent and intoxicated HEAD: Atraumatic, normocephalic. EYES: Conjunctival injection, extraocular movements intact, sclera anicteric. Pinpoint pupils ENT: nares patent, oropharynx clear without exudates. Moist mucous membranes. NECK: Normal range of motion, supple without lymphadenopathy LUNGS: Breath sounds clear to auscultation bilaterally and equal. Bradypnea. no wheezes rales or rhonchi. HEART: Regular rate and rhythm without murmurs ABDOMEN: Soft, nontender, normoactive bowel sounds. No rebound, guarding, or rigidity. No masses appreciated. EXTREMITIES: Nontender, good range of motion, no pitting or edema. NEUROLOGICAL: No focal neurological deficits. Moves all extremities spontaneously Motor and sensory grossly intact on exam. PSYCH: Normal mood, normal affect. SKIN: Warm, Dry, normal turgor, no rashes or lesions noted on exposed skin - Related Data Allergies/Adverse Reactions: No Known Allergies Allergy (Verified 03/08/18 08:04) Past Medical History - Social History Smoking Status: Never Smoker Family History: Reviewed & Not Pertinent, Hypertension Pulmonary Medical History: Reports: Hx Asthma Endocrine Medical History: Denies: Hx Diabetes Mellitus Type 2 Renal/ Medical History: Denies: Hx Peritoneal Dialysis GI Medical History: Denies: Hx Gastroesophageal Reflux Disease Musculoskeletal Medical History: Reports Hx Musculoskeletal Trauma Traumatic Medical History: Reports: Hx Fractures - right 5th finger Past Surgical History: Reports: Hx Oral Surgery - Immunizations Immunizations up to date: Yes Hx Diphtheria, Pertussis, Tetanus Vaccination: Yes - 2014 Review of Systems - Review of Systems Notes: Dictated Physical Exam - Vital signs Vitals: Temp Pulse Resp BP Pulse Ox 97.7 F 104 H 8 L 143/84 H 95 03/08/18 08:09 03/08/18 08:09 03/08/18 08:09 03/08/18 08:09 03/08/18 08:09 - Notes Notes: Dictated Course - Re-evaluation Re-evalutation: 03/08/18 08:24 Vitals reviewed. Nursing note reviewed. Patient presented with shallow respirations and a pulse ox of 88%. He was placed on nasal cannula oxygen. After 2 mg IV Narcan patient's respirations return to normal and he was much more alert. CT scan of the head and cervical spine obtained to evaluate for injury secondary to his fall. After Narcan he has no complaints of pain and states he feels much better. 03/08/18 09:31 Patient has remained hemodynamically stable. He is awake and oxygenating. Patient was never apneic although he did have slow shallow respirations at presentation. CT brain and cervical spine show no acute injury from his fall. Patient was discharged home in stable condition. Cervical Spine CT 03/08/18 08:20 IMPRESSION: NO ACUTE FINDINGS IN THE CERVICAL SPINE. Head CT 03/08/18 08:20 IMPRESSION: NORMAL BRAIN CT WITHOUT CONTRAST. EVIDENCE OF ACUTE STROKE: NO. He was advised on cessation of drug use - Vital Signs Vital signs: Temp Pulse Resp BP Pulse Ox 97.7 F 104 H 19 143/84 H 98 03/08/18 08:09 03/08/18 08:09 03/08/18 08:21 03/08/18 08:09 03/08/18 08:21 Discharge - Discharge Clinical Impression: Opiate overdose Qualifiers: Encounter type: initial encounter Injury intent: accidental or unintentional Qualified Code(s): T40.601A - Poisoning by unspecified narcotics, accidental ( unintentional), initial encounter Condition: Stable Disposition: HOME, SELF-CARE Instructions: Instructions for Home Care Following a Drug Overdose ([facility]), Family Physicians / Practices Additional Instructions: Please return to the emergency department if you have any worsening, or concern of your symptoms. Please return to the emergency department if you develop chest pain, difficulty breathing, severe abdominal pain, or ongoing vomiting. Please follow-up with your primary care physician in 2-3 days and any other recommended physicians. If prescribed, take all medications as directed. If you have any questions or concerns do not hesitate to return the emergency department for evaluation. []
--- NOTE | 2018-03-08 09:24 | RADIOLOGY REPORT (SQ) ---
EXAM DESCRIPTION: CT HEAD WITHOUT COMPLETED DATE/TIME: 03/08/2018 9:14 am REASON FOR STUDY: trauma COMPARISON: None. TECHNIQUE: Axial images acquired through the brain without intravenous contrast. Images reviewed wi th bone, brain and subdural windows. Additional sagittal and coronal reconstructions were generated. Images stored on PACS. All CT scanners at this facility use dose modulation, iterative reconstruction, and/or weight based d osing when appropriate to reduce radiation dose to as low as reasonably achievable (ALARA). [facility]: Dose Right [facility]: CareDose [facility]: Dose Right [facility]: Teradose 4D [facility]: [employer] RADIATION DOSE: CT Rad equipment meets quality standard of care and radiation dose reduction techniq ues were employed. CTDIvol: 53.2 mGy. DLP: 1124 mGy-cm. mGy. LIMITATIONS: None. FINDINGS: VENTRICLES: Normal size and contour. CEREBRUM: No masses. No hemorrhage. No midline shift. No evidence for acute infarction. Normal gra y/white matter differentiation. No areas of low density in the white matter. CEREBELLUM: No masses. No hemorrhage. No alteration of density. No evidence for acute infarction. EXTRAAXIAL SPACES: No fluid collections. No masses. ORBITS AND GLOBE: No intra- or extraconal masses. Normal contour of globe without masses. CALVARIUM: No fracture. PARANASAL SINUSES: No fluid or mucosal thickening. SOFT TISSUES: No mass or hematoma. OTHER: No other significant finding. IMPRESSION: NORMAL BRAIN CT WITHOUT CONTRAST. EVIDENCE OF ACUTE STROKE: NO. COMMENT: Quality ID # [id number]: Final reports with documentation of one or more dose reduction techniques (e.g., Automated exposure control, adjustment of the mA and/or kV according to patient size, use of iterative reconstruction technique) TECHNICAL DOCUMENTATION: JOB ID: [id number] [employer]- All Rights Reserved Reading location - IP/workstation name: [email or web address]
--- NOTE | 2018-03-08 09:25 | RADIOLOGY REPORT (SQ) ---
EXAM DESCRIPTION: CT CERVICAL SPINE WITHOUT COMPLETED DATE/TIME: 03/08/2018 9:14 am REASON FOR STUDY: trauma COMPARISON: None. TECHNIQUE: Axial images acquired through the cervical spine without intravenous contrast. Images re viewed with lung, soft tissue and bone windows. Reconstructed coronal and sagittal MPR images review ed. Images stored on PACS. All CT scanners at this facility use dose modulation, iterative reconstruction, and/or weight based d osing when appropriate to reduce radiation dose to as low as reasonably achievable (ALARA). [facility]: Dose Right [facility]: CareDose [facility]: Dose Right [facility]: Teradose 4D [facility]: [employer] RADIATION DOSE: CT Rad equipment meets quality standard of care and radiation dose reduction techniq ues were employed. CTDIvol: 20.0 mGy. DLP: 435 mGy-cm. mGy. LIMITATIONS: None. FINDINGS: ALIGNMENT: Anatomic. MINERALIZATION: Normal. VERTEBRAL BODIES: No fractures or dislocation. DISCS: Disc space narrowing and osteophyte formation C5-6 and C6-7. FACETS, LATERAL MASSES, POSTERIOR ELEMENTS: No fractures. No dislocation. No acute findings. HARDWARE: None in the spine. VISUALIZED RIBS: No fractures. LUNG APICES AND SOFT TISSUES: No significant or acute findings. OTHER: No other significant finding. IMPRESSION: NO ACUTE FINDINGS IN THE CERVICAL SPINE. TECHNICAL DOCUMENTATION: JOB ID: [id number] Quality ID # [id number]: Final reports with documentation of one or more dose reduction techniques (e.g., Au tomated exposure control, adjustment of the mA and/or kV according to patient size, use of iterative reconstruction technique) 2010 [employer]- All Rights Reserved Reading location - IP/workstation name: [email or web address]
== END 2018-03-08 10:30 | disposition home or self-care (01) ==
LOC: ER 08:03
DX: Z04.3 Encounter for examination and observation following other accident (principal); T40.601A Poisoning by unspecified narcotics, accidental (unintentional), initial encounter; R06.89 Other abnormalities of breathing; J45.909 Unspecified asthma, uncomplicated
CPT/HCPCS: 99284; 96374; 70450; 72125; J2310

== ENCOUNTER 2018-09-04 17:08 | Emergency (ER) | payer SELFPAY ==
--- NOTE | 2018-09-04 17:48 | ER Document Report ---
ED Medical Screen (RME) - General Chief Complaint: Rectal Bleeding Stated Complaint: RECTAL BLEEDING Time Seen by Provider: 09/04/18 17:46 TRAVEL OUTSIDE OF THE [place] IN LAST 30 DAYS: No - HPI Notes: 09/04/18 17:47 Painful bloody poops for a week - Related Data Allergies/Adverse Reactions: No Known Allergies Allergy (Verified 03/08/18 08:04) Past Medical History Pulmonary Medical History: Reports: Hx Asthma Endocrine Medical History: Denies: Hx Diabetes Mellitus Type 2 Renal/ Medical History: Denies: Hx Peritoneal Dialysis GI Medical History: Denies: Hx Gastroesophageal Reflux Disease Musculoskeltal Medical History: Reports Hx Musculoskeletal Trauma Traumatic Medical History: Reports: Hx Fractures - right 5th finger Past Surgical History: Reports: Hx Oral Surgery - Immunizations Immunizations up to date: Yes Hx Diphtheria, Pertussis, Tetanus Vaccination: Yes - 2014 Physical Exam - Vital signs Vitals: Temp Pulse Resp BP Pulse Ox 98.0 F 85 16 130/85 H 98 09/04/18 17:23 09/04/18 17:23 09/04/18 17:23 09/04/18 17:23 09/04/18 17:23 Course - Vital Signs Vital signs: Temp Pulse Resp BP Pulse Ox 98.0 F 85 16 130/85 H 98 09/04/18 17:23 09/04/18 17:23 09/04/18 17:23 09/04/18 17:23 09/04/18 17:23
[2018-09-04 18:10] LABS: HEMATOCRIT 44.3 % (37.9-51.0); HEMOGLOBIN 15.2 g/dL (13.5-17.0); MEAN CORPUSCULAR HGB CONC 34.2 g/dL (32.0-36.0); MEAN CORPUSCULAR VOLUME 88 fl (80-97); PLATELET COUNT 203 10^3/uL (150-450); RED BLOOD COUNT 5.06 10^6/uL (4.35-5.55); RED CELL DISTRIBUTION WIDTH 14.4 % (11.5-14.0); WHITE BLOOD COUNT 8.9 10^3/uL (4.0-10.5)
[2018-09-04 18:21] LABS: ALANINE AMINOTRANSFERASE 29 U/L (21-72); ALBUMIN 4.5 g/dL (3.5-5.0); ALKALINE PHOSPHATASE 109 U/L (38-126); ANION GAP 7 (5-19); ASPARTATE AMINO TRANSFERASE 28 U/L (17-59); BILIRUBIN,DIRECT 0.1 mg/dL (0.0-0.4); BILIRUBIN,TOTAL 0.4 mg/dL (0.2-1.3); BLOOD UREA NITROGEN 12 mg/dL (7-20); CALCIUM 9.8 mg/dL (8.4-10.2); CARBON DIOXIDE 30 mmol/L (22-30); CHLORIDE 104 mmol/L (98-107); GLUCOSE 77 mg/dL (75-110); LIPASE 25.8 U/L (23-300); TOTAL PROTEIN 7.5 g/dL (6.3-8.2)
[2018-09-04] MEDS ORDERED: HYOSCYAMINE SULFATE 0.125 MG TABLET PO ONE (18:39)
[2018-09-04] MEDS ORDERED: POLYETHYLENE GLYCOL 3350 POWDER 17 GM/1 PACKET PO ONE (18:39)
[2018-09-04] MEDS ORDERED: DOCUSATE SODIUM 100 MG CAPSULE PO ONE (18:39)
--- NOTE | 2018-09-04 18:44 | ER Document Report ---
ED General - General Stated Complaint: RECTAL BLEEDING Time Seen by Provider: 09/04/18 17:46 Notes: Patient is a 33-year-old male without chronic medical problems who presents with 1 week of intermittent rectal bleeding with having bowel movements. Also notes some intermittent generalized abdominal cramping. Describes cramping as being a diffuse, cramping, throbbing discomfort that comes and goes. Symptoms started gradually, have been relatively unchanged since onset. States that today he became concerned because he had a very small bowel movement but passed a relatively large quantity of bright red blood. States that he felt somewhat lightheaded thereafter prompting him to come to the emergency department for assessment. The patient states that he does strain to have bowel movements, that the stool is always very firm, pellet-like quality. He has not tried anything to improve his symptoms. Nothing worsens his symptoms. He has had nausea but no vomiting. No hematemesis. Denies any personal or family history of inflammatory bowel disease, Meckel's diverticulum, or bleeding diatheses. Denies rectal trauma. Has not seen his general physician regarding today's concerns. TRAVEL OUTSIDE OF THE [place] IN LAST 30 DAYS: No - Related Data Allergies/Adverse Reactions: No Known Allergies Allergy (Verified 03/08/18 08:04) Past Medical History - General Information source: Patient - Social History Smoking Status: Never Smoker Chew tobacco use (# tins/day): No Frequency of alcohol use: None Drug Abuse: None Lives with: Spouse/Significant other Family History: Reviewed & Not Pertinent, Hypertension Patient has suicidal ideation: No Patient has homicidal ideation: No Pulmonary Medical History: Reports: Hx Asthma Endocrine Medical History: Denies: Hx Diabetes Mellitus Type 2 Renal/ Medical History: Denies: Hx Peritoneal Dialysis GI Medical History: Denies: Hx Gastroesophageal Reflux Disease Musculoskeletal Medical History: Reports Hx Musculoskeletal Trauma Traumatic Medical History: Reports: Hx Fractures - right 5th finger Past Surgical History: Reports: Hx Oral Surgery - Immunizations Immunizations up to date: Yes Hx Diphtheria, Pertussis, Tetanus Vaccination: Yes - 2014 Review of Systems - Review of Systems Notes: Constitutional: Negative for fever. HENT: Negative for sore throat. Eyes: Negative for visual changes. Cardiovascular: Negative for chest pain. Respiratory: Negative for shortness of breath. Gastrointestinal: Positive for abdominal cramping, rectal bleeding, firm stools Genitourinary: Negative for dysuria. Musculoskeletal: Negative for back pain. Skin: Negative for rash. Neurological: Negative for headaches, weakness or numbness. 10 point ROS negative except as marked above and in HPI. Physical Exam - Vital signs Vitals: Temp Pulse Resp BP Pulse Ox 98.0 F 85 16 130/85 H 98 09/04/18 17:23 09/04/18 17:23 09/04/18 17:23 09/04/18 17:23 09/04/18 17:23 Interpretation: Normal Notes: PHYSICAL EXAMINATION: GENERAL: Well-appearing, well-nourished and in no acute distress. HEAD: Atraumatic, normocephalic. EYES: Pupils equal round and reactive to light, extraocular movements intact, sclera anicteric, conjunctiva are normal. ENT: nares patent, oropharynx clear without exudates. Moist mucous membranes. NECK: Normal range of motion, supple without lymphadenopathy LUNGS: Breath sounds clear to auscultation bilaterally and equal. No wheezes rales or rhonchi. HEART: Regular rate and rhythm without murmurs ABDOMEN: Soft, nontender, normoactive bowel sounds. No guarding, no rebound. No masses appreciated. Rectal: 2 small external nonthrombosed hemorrhoids at the 6 o'clock position on the anus. Internal exam reveals palpable internal hemorrhoid. No blood on digital rectal examination. Brown stool. EXTREMITIES: Normal range of motion, no pitting or edema. No cyanosis. NEUROLOGICAL: No focal neurological deficits. Moves all extremities spontaneously and on command. PSYCH: Normal mood, normal affect. SKIN: Warm, Dry, normal turgor, no rashes or lesions noted. Course - Re-evaluation Re-evalutation: 09/04/18 18:43 Presentation is most consistent with uncomplicated hemorrhoids. No evidence of anemia on CBC. Patient's abdominal exam is otherwise benign. I do not suspect a more significant lower GI bleed or upper GI bleed based on history, vitals, normal hemoglobin, and patient's overall well appearance. At this time will discharge with return precautions and follow-up recommendations. Verbal discharge instructions given a the bedside and opportunity for questions given. Medication warnings reviewed. Patient is in agreement with this plan and has verbalized understanding of return precautions and the need for primary care follow-up in the next 24-72 hours. - Vital Signs Vital signs: Temp Pulse Resp BP Pulse Ox 98.0 F 85 16 130/85 H 98 09/04/18 17:23 09/04/18 17:23 09/04/18 17:23 09/04/18 17:23 09/04/18 17:23 - Laboratory Result Diagrams: 09/04/18 17:24 09/04/18 17:24 Laboratory results interpreted by me: 09/04/18 17:24 RDW 14.4 H Discharge - Discharge Clinical Impression: Abdominal cramping, Rectal bleeding Hemorrhoids Qualifiers: Hemorrhoid type: unspecified Qualified Code(s): K64.9 - Unspecified hemorrhoids Condition: Good Disposition: HOME, SELF-CARE Additional Instructions: You were seen today for hemorrhoids. The best treatment is to avoid straining while having bowel moments, avoiding heavy lifting, or any other activity that causes you to bear down forcefully. You need to make sure that your stools are soft and should start taking Docusate 200mg in the morning and at night until your stools are very soft and you can have a bowel movement without any straining. This medicine can be purchased directly over the counter. You may take Tylenol 1000 mg every 6 hours as needed for pain. You may also take Levsin which has been prescribed as directed for abdominal cramping. Please follow-up with your primary doctor. Return if you begin to have persistent bleeding, worsening pain, vomiting, vomiting of blood, fever >101, or any other symptoms that are concerning to you. Prescriptions: Hyoscyamine Sulfate [Levsin 0.125 Tablet] 0.125 mg PO TID PRN #30 tablet PRN Reason:
[2018-09-04 19:32] VITALS: BP 141/79
[2018-09-04] MEDS ORDERED: HYOSCYAMINE SULFATE 0.125 MG TABLET ONE (20:59)
== END 2018-09-04 20:26 | disposition home or self-care (01) ==
LOC: ER 17:08
DX: K62.5 Hemorrhage of anus and rectum (principal); R10.84 Generalized abdominal pain; K64.9 Unspecified hemorrhoids; R42 Dizziness and giddiness; R11.0 Nausea; J45.909 Unspecified asthma, uncomplicated; E11.9 Type 2 diabetes mellitus without complications
CPT/HCPCS: 99283; 36415; 83690; 85027; 80053; J3490

== ENCOUNTER 2019-04-03 20:18 | Emergency (ER) | payer SELFPAY ==
--- NOTE | 2019-04-03 20:46 | ER Document Report ---
ED Medical Screen (RME) - General Chief Complaint: Jaw Pain Stated Complaint: POSSIBLE JAW ABSCESS Time Seen by Provider: 04/03/19 20:41 Mode of Arrival: Ambulatory Information source: Patient Notes: 33-year-old male presented to ED for complaint of left jaw pain for dental pain. He states is been hurting for about a week. He states the teeth have been very decayed for years. He states is just been hurting a lot worse for the last week. He states he smokes 4 to 5 cigarettes a day, drinks weekly. And denies any use of any drugs. TRAVEL OUTSIDE OF THE [place] IN LAST 30 DAYS: No - HPI Onset: Last week Onset/Duration: Gradual, Worse Quality of pain: Stabbing, Throbbing Severity: Moderate Pain Level: 4 Associated Symptoms: Other Exacerbated by: Denies Relieved by: Denies - Dental pain Similar symptoms previously: Yes Recently seen / treated by doctor: No - Related Data Smoking: Cigarettes, Less than 1 pack/day Frequency of alcohol use: Social Drug Abuse: None Allergies/Adverse Reactions: No Known Allergies Allergy (Verified 04/03/19 20:40) Past Medical History - General Information source: Patient - Social History Cigarette use (# per day): Yes Chew tobacco use (# tins/day): No Frequency of alcohol use: Social Drug Abuse: None Family history: Reviewed & Not Pertinent - Past Medical History Cardiac Medical History: Reports: None Pulmonary Medical History: Reports: Hx Asthma EENT Medical History: Reports: None Neurological Medical History: Reports: None Endocrine Medical History: Reports: None Renal/ Medical History: Reports: None Malignancy Medical History: Reports None GI Medical History: Reports: None Musculoskeltal Medical History: Reports Hx Musculoskeletal Trauma Skin Medical History: Reports None Psychiatric Medical History: Reports: None Traumatic Medical History: Reports: Hx Fractures - right 5th finger Infectious Medical History: Reports: None Past Surgical History: Reports: Hx Oral Surgery - Immunizations Immunizations up to date: Yes Hx Diphtheria, Pertussis, Tetanus Vaccination: Yes - 2014 Review of Systems - Review of Systems Constitutional: No symptoms reported EENT: Mouth pain, Dental problem Cardiovascular: No symptoms reported Respiratory: No symptoms reported Gastrointestinal: No symptoms reported Genitourinary: No symptoms reported Male Genitourinary: No symptoms reported Musculoskeletal: No symptoms reported Skin: No symptoms reported Hematologic/Lymphatic: No symptoms reported Neurological/Psychological: No symptoms reported Physical Exam - Vital signs Vitals: Temp Pulse Resp BP Pulse Ox 98.3 F 82 17 132/88 H 99 04/03/19 20:23 04/03/19 20:23 04/03/19 20:23 04/03/19 20:23 04/03/19 20:23 Interpretation: Normal - General General appearance: Appears well, Alert - HEENT Head: Normocephalic, Atraumatic Eyes: Normal Pupils: PERRL Ears: Normal External canal: Normal Tympanic membrane: Normal Sinus: Normal Nasal: Normal Mouth/Lips: Caries Mucous membranes: Normal Teeth diagram: 1 - Very decayed broken off almost to the skin mild redness surrounding the teeth gingivitis Pharynx: Normal Neck: Normal - Respiratory Respiratory status: No respiratory distress Chest status: Nontender Breath sounds: Normal Chest palpation: Normal - Cardiovascular Rhythm: Regular Heart sounds: Normal auscultation Murmur: No - Abdominal Inspection: Normal Distension: No distension Bowel sounds: Normal Tenderness: Nontender Organomegaly: No organomegaly - Back Back: Normal, Nontender - Extremities General upper extremity: Normal inspection, Nontender, Normal color, Normal ROM, Normal temperature General lower extremity: Normal inspection, Nontender, Normal color, Normal ROM, Normal temperature, Normal weight bearing. No: Wagner's sign - Neurological Neuro grossly intact: Yes Cognition: Normal Orientation: AAOx4 Moises Coma Scale Eye Opening: Spontaneous Moises Coma Scale Verbal: Oriented Moises Coma Scale Motor: Obeys Commands [place] Coma Scale Total: 15 Speech: Normal Motor strength normal: LUE, RUE, LLE, RLE Sensory: Normal - Psychological Associated symptoms: Normal affect, Normal mood - Skin Skin Temperature: Warm Skin Moisture: Dry Skin Color: Normal Course - Re-evaluation Re-evalutation: 04/03/19 22:17 Presentation is most consistent with likely an infected tooth. Airway is patent. Vitals within normal limits. Patient is able swallow without any difficulty. There is no significant facial swelling. No evidence of Paolo angina, apical abscess, or airway obstruction. Patient will be started on antibiotics. I've instructed to follow-up with dentistry as earliest ability for definitive management. At this time will discharge with return precautions and follow-up recommendations. Verbal discharge instructions given a the bedside and opportunity for questions given. Medication warnings reviewed. Patient is in agreement with this plan and has verbalized understanding of return precautions and the need for primary care follow-up in the next 24-72 hours. - Vital Signs Vital signs: Temp Pulse Resp BP Pulse Ox 98.3 F 80 16 135/82 H 98 04/03/19 20:23 04/03/19 21:05 04/03/19 21:05 04/03/19 21:05 04/03/19 21:05 Doctor's Discharge - Discharge Clinical Impression: Pain due to dental caries Condition: Stable Disposition: HOME, SELF-CARE Additional Instructions: TOOTHACHE: Your pain is due to dental decay. The tooth must be repaired in order for you to feel better. You will, therefore, be referred to a dentist. We do not have dentists on the staff at [facility]. Severe swelling or drainage around a tooth usually means a dental abscess. This also requires evaluation and treatment by the dentist, but antibiotics may be prescribed while awaiting dental treatment. You should be rechecked immediately if you develop major swelling of the face, increasing pain, a lump in the jaw or gums, headache, difficulty swallowing, or fever. PENICILLIN V K: You have been given a prescription for Penicillin VK. Your physician has determined that this is the best antibiotic for your condition. Pen VK can be taken with meals, however more of the antibiotic gets into the bloodstream if it's taken on an empty stomach. Penicillin usually has no side effects. However, allergy to penicillins is common. If you have had an allergic reaction to any drug of the penicillin family, you should never take any other penicillin. Notify your doctor at once if you develop hives, itching, swelling, faintness, or shortness of breath. Ibuprofen Ibuprofen is an excellent, safe drug for pain control. In addition, it has potent antiinflammatory effects which are beneficial, especially in the treatment of injuries, arthritis, or tendonitis. It's best to take ibuprofen with food. Persons with ulcer disease or allergy to aspirin should notify their physician of this before taking ibuprofen. Take the medication exactly as prescribed. Don't take additional doses unless instructed to do so by your doctor. If you develop wheezing, shortness of breath, hives, faintness, stomach pain, vomiting, or dark black stools, return for re-evaluation at once. Please use the viscous lidocaine I have provided no more than every 3 hours as needed for pain. If you use it more often than that it to anybody skin on your gums. Salt and soda solution 1 quart of water 1 tablespoon of salt 1 teaspoon of baking soda Mixed 3 ingredients together and boil for 1 minute Placed in a covered quart jar Use 1/2 ounce of cold solution to gargle 3 times a day FOLLOW-UP CARE: You have been referred for follow-up care to the dentists listed below. Call the dentists office for an appointment as you were instructed or within the next two days. If you experience worsening or a significant change in your symptoms, notify the physician immediately or return to the Emergency Department at any time for re-evaluation. [facility] [address] [place] [address] [facility] [address] [facility] [address] [facility] Emergency Department [facility] [address] [email or web address] [address] [place] [address] Wednesday- 8:00am to 5:00 pm Will see patients from other [facility]. Charges based on income and family size and accepts Medicare, Medicaid, and Insurances Will pull molars [facility] [address] Hours of Operation 8:00 am - 4:30 pm weekdays The following dental offices accept Medicaid: [facility] Dr. Emmanuel Dr. Arthur Dr. Poole Dr. Whitfield Osmar Clark Lutsavage, and Vasu oral surgery Dr. Edwards ([place]) Dr. Jalloh ([place]) [facility] Drs. Garcia and Darryl ([place]) Dr. Borden ([place]) [facility] Dr. Ochoa ([place]) Drs. Bauman and ([place]) Medicaid Care Line Prescriptions: Penicillin V Potassium [Penicillin Vk 500 mg Tablet] 500 mg PO BID #20 tablet Forms: Elevated Blood Pressure, Smoking Cessation Education
[2019-04-03] MEDS ORDERED: PENICILLIN V POTASSIUM 500 MG TABLET PO ONE (20:50)
[2019-04-03] MEDS ORDERED: IBUPROFEN 800 MG TABLET PO ONE (20:50)
[2019-04-03] MEDS ORDERED: LIDOCAINE 2% VISCOUS SOLN 20 ML UDCUP PO ONE (20:52)
[2019-04-03 21:10] VITALS: BP 135/82
== END 2019-04-03 21:05 | disposition home or self-care (01) ==
LOC: ER 20:18
DX: K02.9 Dental caries, unspecified (principal); K05.10 Chronic gingivitis, plaque induced; K08.89 Other specified disorders of teeth and supporting structures; F17.210 Nicotine dependence, cigarettes, uncomplicated; J45.909 Unspecified asthma, uncomplicated
CPT/HCPCS: 99283; J3490

== ENCOUNTER 2020-04-25 11:52 | Emergency (ER) | payer SELFPAY ==
--- NOTE | 2020-04-25 13:15 | ER Document Report ---
HPI - HPI Patient complains to provider of: Right arm laceration Time Seen by Provider: 04/25/20 13:01 Context: 35-year-old male no previous medical problems presents to the emergency room with laceration to his right upper arm. Patient states he was working on a [employer] when the scaffolding fell cutting his right upper arm with a piece of metal. Bleeding is controlled. Tetanus is up-to-date. Patient is right-handed. Associated Symptoms: None Exacerbated by: Movement Relieved by: Remaining still Similar symptoms previously: No Recently seen / treated by doctor: No - ROS Systems Reviewed and Negative: Yes All other systems reviewed and negative - NEURO Neurology: DENIES: Weakness - REPRODUCTIVE Reproductive: REPORTS: : - MUSCULOSKELETAL Musculoskeletal: REPORTS: Extremity pain - DERM Skin Color: Erythema Skin Problems: Laceration Past Medical History - General Information source: Patient - Social History Smoking Status: Current Every Day Smoker Frequency of alcohol use: Rare Drug Abuse: None Family History: Reviewed & Not Pertinent, Hypertension Pulmonary Medical History: Reports: Hx Asthma Endocrine Medical History: Denies: Hx Diabetes Mellitus Type 2 Renal/ Medical History: Denies: Hx Peritoneal Dialysis GI Medical History: Denies: Hx Gastroesophageal Reflux Disease Musculoskeletal Medical History: Reports Hx Musculoskeletal Trauma Traumatic Medical History: Reports: Hx Fractures - right 5th finger Past Surgical History: Reports: Hx Oral Surgery - Immunizations Immunizations up to date: Yes Hx Diphtheria, Pertussis, Tetanus Vaccination: Yes - 2014 [facility] Provider Document - CONSTITUTIONAL Agree With Documented VS: Yes Exam Limitations: No Limitations General Appearance: Mild Distress - INFECTION CONTROL TRAVEL OUTSIDE OF THE [place] IN LAST 30 DAYS: No - HEENT HEENT: Atraumatic, Normocephalic - NECK Neck: Normal Inspection, Supple, Thyroid Normal - RESPIRATORY Respiratory: Breath Sounds Normal, No Respiratory Distress - CARDIOVASCULAR Cardiovascular: Regular Rate, Regular Rhythm, No Murmur - MUSCULOSKELETAL/EXTREMETIES Musculoskeletal/Extremeties: Tender - Tenderness to the distal aspect of the right upper arm secondary to a 2 cm laceration. Bleeding is controlled. - NEURO Level of Consciousness: Awake, Alert, Appropriate Motor/Sensory: No Motor Deficit, No Sensory Deficit Notes: Positive right radial pulse. Capillary refill less than 3 seconds. Neurovascularly intact. - DERM Integumentary: Warm, Dry, Laceration - 2 cm laceration noted to the distal aspect of the right upper arm. Bleeding is controlled. Course - Re-evaluation Re-evalutation: 04/25/20 14:04 Wound was cleansed and sutured as documented. Patient was counseled on proper wound care. Can remove the dressing in 24 hours. Sutures out 8 to 10 days. Antibiotics as prescribed. Patient was given strict return to the emergency room guidelines. Return for any new or worsening symptoms. All questions were answered. Patient verbalized understanding and agrees with plan of care. - Vital Signs Vital signs: Temp Pulse Resp BP Pulse Ox 98.8 F 90 16 139/84 H 100 04/25/20 11:56 04/25/20 11:56 04/25/20 11:56 04/25/20 11:56 04/25/20 11:56 Procedures - Laceration/Wound Repair Right Upper Arm Time completed: 14:03 Wound length (cm): 2 Wound's Depth, Shape: Superficial, Linear Laceration pre-procedure: Sterile PPE donned, Sterile drapes applied, Shur-Clens applied Anesthetic type: 1% Lidocaine Volume Anesthetic (mLs): 2 Wound explored: Clean, No foreign body removed Wound Repaired With: Sutures Suture Size/Type: 4:0, Ethilon Number of Sutures: 5 Layer Closure?: No Post-procedure wound care: Sterile dressing applied Post-procedure NV exam normal: Yes Complications: No Discharge - Discharge Clinical Impression: Laceration of right upper arm Qualifiers: Encounter type: initial encounter Qualified Code(s): S41.111A - Laceration without foreign body of right upper arm, initial encounter Condition: Stable Disposition: HOME, SELF-CARE Instructions: Laceration Care ([facility]), Prophylactic Antibiotic ([facility]) Additional Instructions: Can remove dressing in 24 hours. Keep wound clean and dry. Sutures out 8 to 10 days. Return to the emergency room for any new or worsening symptoms. Prescriptions: Cephalexin Monohydrate [Keflex 500 mg Capsule] 500 mg PO QID 10 Days #40 capsule Referrals: LOCALMD,NO [Primary Care Provider] - Follow up as needed
[2020-04-25] MEDS: LIDOCAINE 1% INJ-PF (10 MG/ML) 30 ML SDV INJ ONE ×2 (13:24→14:06)
[2020-04-25 14:19] VITALS: BP 128/80
--- OUTSIDE RECORDS SUMMARY | 2020-04-26 15:39 | XMS REPORT ---
:1985 Author Organization [facility] Address [address] [address] Care Team Providers Name Role Phone Fina Borden PA-C Attending Clinician Unavailable Allergies, Adverse Reactions, Alerts This patient has no known allergies or adverse reactions. Medications This patient has no known medications. Problems This patient has no known problems. Procedures This patient has no known procedures. Results Test Description Test Time Test Comments Text Results Atomic Results Result Comments RADIOLOGY 2015-08-[address] [address] 15:14:00 Patient: BRYCE IGNACIO : 1985 Sex: M Address: Phone: [phone] Unit #: [id number] REQ SEQ #: [id number] Location: Room #: Ordering: Fina Borden PA-C Diagnosis: LOWER BACK PAIN/S AYS CAN FEEL BONE MOVING LUMBAR SPINE 3 VIEWS Clinical Information: LOWER BACK PAIN. SAYS CAN FEEL BONE MOVING. Tingling and numbness in the right lower extremity. The lumbar vertebrae are normally mineralized. There is no evidence of blastic or destructive velasquez ges. The vertebral bodies and disc spaces are well- maintained. There is no evidence of fracture, subluxation or rotation abnormality. The paraspinal soft tissues are unremarkable. Impression: Unremarkable lumbar spine. Final report electronically signed by: Diana Walters MD Signed by: DIANA WALTERS MD 08/26/15 1510 Encounters Start End Encounter Admission Attending Care Care Encounter Date/Time Date/Time Type Type Clinicians Facility Department ID 2015-08-26 2015-08-26 Emergency ED [facility] [id number] 03 14:11:00 17:16:00 Fina Lezama Payers Payer Name Policy Type Policy Number Effective Date Expiration D ate Social History This patient has no known social history. Vital Signs Vital Name Observation Time Observation Value Comments WEIGHT 2015-08-26 14:11:00 76.2 kg
== END 2020-04-25 14:19 | disposition home or self-care (01) ==
LOC: ER 11:52
DX: S41.111A Laceration without foreign body of right upper arm, initial encounter (principal); W17.89XA Other fall from one level to another, initial encounter; F17.200 Nicotine dependence, unspecified, uncomplicated
CPT/HCPCS: 99283; J3490